=== PATIENT | female | born 1965 | race Caucasian/White ===

== ENCOUNTER 2016-10-16 16:42 | Inpatient (IN) | payer OTHER ==
[2016-10-16] MEDS ORDERED: SODIUM CHLORIDE 0.9% 1,000 ML IV ONE (18:58)
[2016-10-16] MEDS ORDERED: HYDROmorphone 1 MG/ML 1 ML SYRINGE IVP STA ×2 (18:58→21:11)
--- NOTE | 2016-10-16 19:01 | ED ---
Abdominal Pain HPI - General Chief Complaint: Abdominal Pain Stated Complaint: Abd Pain Time Seen by Provider: 10/16/16 18:40 Source: patient, RN notes reviewed Mode of arrival: wheelchair Limitations: no limitations - History of Present Illness Initial Comments: Patient is a 51-year-old female presents to the emergency room for evaluation of abdominal pain. Patient states pain began Wednesday. Patient states pain has been getting worse throughout the week. Patient states she's having left lower quadrant severe sharp stabbing pain. Patient states the pain would not subside. Patient states she has a history of diverticulitis. Patient denies history of abdominal surgeries. Patient denies recent colonoscopies. Patient denies fevers or chills. Patient denies nausea or vomiting. Patient states her last bowel movement was this morning. Patient denies blood in stools or dark tarry stools. Patient denies chest pain or shortness of breath. Denies recent travel outside of the country. Patient denies headache or dizziness. - Related Data Home Medications Medication Instructions Recorded Confirmed No Known Home Medications [No 10/16/16 10/16/16 Known Home Medications] Allergies Allergy/AdvReac Type Severity Reaction Status Date / Time No Known Allergies Allergy Verified 10/16/16 18:48 Review of Systems ROS Statement: Those systems with pertinent positive or pertinent negative responses have been documented in the HPI. ROS Other: All systems not noted in ROS Statement are negative. Past Medical History Additional Past Medical History / Comment(s): diverticulitis, ovarian cyst History of Any Multi-Drug Resistant Organisms: None Reported Past Surgical History: No Surgical Hx Reported Past Psychological History: No Psychological Hx Reported Smoking Status: Current every day smoker Past Alcohol Use History: Rare Past Drug Use History: None Reported General Exam - General Exam Comments Initial Comments: Laying in exam room, anxious secondary to pain Limitations: no limitations General appearance: alert, in no apparent distress Head exam: Present: atraumatic, normocephalic, normal inspection Eye exam: Present: normal appearance ENT exam: Present: normal exam Neck exam: Present: normal inspection Respiratory exam: Present: normal lung sounds bilaterally. Absent: respiratory distress Cardiovascular Exam: Present: regular rate, normal rhythm, normal heart sounds GI/Abdominal exam: Present: soft, tenderness (mild RLQ, tender LLQ), guarding ( voluntary guarding on palpation), normal bowel sounds. Absent: distended, rebound, rigid Extremities exam: Present: normal inspection Back exam: Present: normal inspection Neurological exam: Present: alert, oriented X3, CN II-XII intact, normal gait Psychiatric exam: Present: normal affect, normal mood Skin exam: Present: warm, dry, intact, normal color. Absent: rash Course Vital Signs 10/16/16 10/16/16 17:10 21:01 Temperature 98.9 F 98.5 F Pulse Rate 77 81 Respiratory 18 16 Rate Blood Pressure 129/70 123/73 O2 Sat by Pulse 99 97 Oximetry Medical Decision Making - Medical Decision Making Patient is a 51-year-old female presents emergency room for evaluation of abdominal pain. Patient is noted to have an elevated white count. Abdomen/ pelvis CT: Acute proximal sigmoid diverticulitis with localized microperforation tiny focus of adjacent extraluminal air in the left lower quadrant. Large dominant heterogenicity posterior fibroid. This could be followed sonographically is not previously known. Splenomegaly (per radiology) . Case discussed with Dr. Little. Case discussed with Dr. Hodges who also evaluated patient. Patient will be admitted and treated with IV antibiotics. - Lab Data Result diagrams: 10/16/16 19:49 10/16/16 19:49 Lab Results 10/16/16 10/16/16 10/16/16 Range/Units 19:49 19:49 19:49 WBC 12.8 H (3.8-10.6) k/uL RBC 5.17 (3.80-5.40) m/uL Hgb 15.9 (11.4-16.0) gm/dL Hct 46.7 H (34.0-46.0) % MCV 90.3 (80.0-100.0) fL MCH 30.8 (25.0-35.0) pg MCHC 34.1 (31.0-37.0) g/dL RDW 13.1 (11.5-15.5) % Plt Count 288 (150-450) k/uL Neutrophils % 85 % Lymphocytes % 10 % Monocytes % 3 % Eosinophils % 1 % Basophils % 0 % Neutrophils # 10.8 H (1.3-7.7) k/uL Lymphocytes # 1.3 (1.0-4.8) k/uL Monocytes # 0.4 (0-1.0) k/uL Eosinophils # 0.1 (0-0.7) k/uL Basophils # 0.1 (0-0.2) k/uL Sodium 142 (137-145) mmol/L Potassium 4.4 (3.5-5.1) mmol/L Chloride 107 (98-107) mmol/L Carbon Dioxide 22 (22-30) mmol/L Anion Gap 13 mmol/L BUN 12 (7-17) mg/dL Creatinine 0.70 (0.52-1.04) mg/dL Est GFR (MDRD) Af Amer >60 (>60 ml/min/1.73 sqM) Est GFR (MDRD) Non-Af >60 (>60 ml/min/1.73 sqM) Glucose 93 (74-99) mg/dL Calcium 9.9 (8.4-10.2) mg/dL Total Bilirubin 0.5 (0.2-1.3) mg/dL AST 13 L (14-36) U/L ALT 24 (9-52) U/L Alkaline Phosphatase 92 (38-126) U/L Total Protein 7.9 (6.3-8.2) g/dL Albumin 4.5 (3.5-5.0) g/dL Amylase 53 (30-110) U/L Lipase 52 (23-300) U/L Urine Color Yellow Urine Appearance Cloudy H (Clear) Urine pH 5.5 (5.0-8.0) Ur Specific [place] 1.018 (1.001-1.035) Urine Protein Trace H (Negative) Urine Glucose (UA) Negative (Negative) Urine Ketones Negative (Negative) Urine Blood Small H (Negative) Urine Nitrite Positive H (Negative) Urine Bilirubin Negative (Negative) Urine Urobilinogen <2.0 (<2.0) mg/dL Ur Leukocyte Esterase Moderate H (Negative) Urine RBC 5 (0-5) /hpf Urine WBC 29 H (0-5) /hpf Ur Squamous Epith Cells 4 (0-4) /hpf Urine Bacteria Many H (None) /hpf Urine Mucus Many H (None) /hpf - Radiology Data Radiology results: report reviewed, image reviewed Disposition Clinical Impression: Diverticulitis Disposition: ADMITTED IP TO THIS [facility] Condition: Stable Referrals: None,Stated [Primary Care Provider] - 1-2 days Decision Date: 10/16/16
[2016-10-16 20:12] LABS: Basophils # (A) 0.1 k/uL (0-0.2); Basophils % (A) 0 %; CH 30.9; CHCM 34.4; Eosinophils # (A) 0.1 k/uL (0-0.7); Eosinophils % (A) 1 %; HCT 46.7 % (34.0-46.0); HDW 2.77; HGB 15.9 gm/dL (11.4-16.0); Luc # (Auto) 0.09; Luc % (Auto) 1; Lymphocytes # (A) 1.3 k/uL (1.0-4.8); Lymphocytes % (A) 10 %; MCH 30.8 pg (25.0-35.0); MCHC 34.1 g/dL (31.0-37.0); MCV 90.3 fL (80.0-100.0); Mean Platelet Volume 7.3; Monocytes # (A) 0.4 k/uL (0-1.0); Monocytes % (A) 3 %; Neutrophils # (A) 10.8 k/uL (1.3-7.7); Neutrophils % (A) 85 %; RBC 5.17 m/uL (3.80-5.40); RDW 13.1 % (11.5-15.5); WBC 12.8 k/uL (3.8-10.6); WBC (Perox) 12.33
--- NOTE | 2016-10-16 20:25 | XR ---
EXAMINATION TYPE: XR KUB DATE OF EXAM: 10/16/2016 8:16 PM COMPARISON: NONE INDICATION: Pain TECHNIQUE: Single view abdomen upright FINDINGS: There is a normal bowel gas pattern. Some nonspecific small bowel gas is present. Psoas margins are normal. No organomegaly is present. IMPRESSION: 1. Unremarkable Abdomen
[2016-10-16 20:28] LABS: Appearance,Urine Cloudy (Clear); Bacteria,Urine Many /hpf; Bilirubin,Urine Negative (Negative); Glucose,Urine (UA) Negative (Negative); Ketones,Urine Negative (Negative); Leukocyte Esterase,Urine Moderate (Negative); Mucus,Urine Many /hpf; Nitrite,Urine Positive (Negative); PH, Urine 5.5 (5.0-8.0); Particle Count 37736; Protein,Urine Trace (Negative); RBC,Urine 5 /hpf (0-5); Specific Gravity,Urine 1.018 (1.001-1.035); Squamous Epithelial Cell,Urine 4 /hpf (0-4); UA Billing (MACRO vs. MICRO) MICRO; Urobilinogen,Urine <2.0 mg/dL (<2.0); WBC,Urine 29 /hpf (0-5)
[2016-10-16 20:42] LABS: ALT 24 U/L (9-52); AST 13 U/L (14-36); Alkaline Phosphatase 92 U/L (38-126); Amylase 53 U/L (30-110); Anion Gap 13 mmol/L; Blood Urea Nitrogen 12 mg/dL (7-17); Calcium 9.9 mg/dL (8.4-10.2); Carbon Dioxide 22 mmol/L (22-30); Chloride 107 mmol/L (98-107); Glucose 93 mg/dL (74-99); Non-African American GFR(MDRD) >60 (>60 ml/min/1.73 sqM); Potassium 4.4 mmol/L (3.5-5.1); Sodium 142 mmol/L (137-145); Total Bilirubin 0.5 mg/dL (0.2-1.3); Total Protein 7.9 g/dL (6.3-8.2)
[2016-10-16] MEDS ORDERED: RX INFO: IV CONTRAST WAS GIVEN 1 EACH MISC MISCELLANE PRN (21:10)
[2016-10-16] MEDS ORDERED: KETOROLAC 30 MG/ML 1 ML VIAL IVP STA (21:11)
--- NOTE | 2016-10-16 22:03 | CT ---
EXAM: CT Abdomen and Pelvis With Intravenous Contrast CLINICAL HISTORY: Reason: Pain TECHNIQUE: Axial computed tomography images of the abdomen and pelvis with intravenous contrast. CTDI is 46.80 mGy and DLP is 2064.50 mGy-cm. This CT exam was performed using one or more of the following dose reduction techniques: automated exposure control, adjustment of the mA and/or kV according to patient size, and/or use of iterative reconstruction technique. COMPARISON: No relevant prior studies available. FINDINGS: Lower thorax: Mild dependent changes at the lung bases. Small hiatal hernia. ABDOMEN: Liver: Uniform in appearance without focal lesion. Borderline enlarged at 17.5 cm in length. Gallbladder and bile ducts: Unremarkable. No calcified stones. No ductal dilation. Pancreas: Mild fatty replacement of the pancreas. No ductal dilation. Spleen: Splenomegaly with splenic length of 14.7 cm. Adrenals: Unremarkable. No mass. Kidneys and ureters: Several small left renal low-density lesions, too small to accurately characterize, statistically cysts. No hydronephrosis. Stomach and bowel: Colonic diverticulosis, most heavily concentrated within the distal descending and sigmoid colon, with findings of acute proximal sigmoid diverticulitis. There is surrounding stranding in the left lower quadrant , within which there is at least one punctate focus of extraluminal air on axial image 70 consistent with localized microperforation. No evidence of abscess or intestinal obstruction. Appendix: No findings to suggest acute appendicitis. PELVIS: Bladder: Unremarkable. No mass. Reproductive: Enlarged uterus, containing a mixed density round posterior 5.9 x 5.9 cm mass most suggestive of a large dominant fibroid. ABDOMEN and PELVIS: Intraperitoneal space: See above. Bones/joints: Multilevel degenerative changes. No acute fracture. Vasculature: No abdominal aortic aneurysm. Lymph nodes: No adenopathy. IMPRESSION: 1. Acute proximal sigmoid diverticulitis, with localized microperforation and tiny focus of adjacent extraluminal air in the left lower quadrant. 2. Large dominant heterogeneous posterior fibroid. This could be followed sonographically if not previously known. 3. Splenomegaly. 4. Additional findings as above. [employer] 10/16/16 22:08 Call Doctor Regarding Bowel Perforation with Free Air, called Dr. Arnold on 10/16 22:07 (-04:00)
[2016-10-16] MEDS ORDERED: NALOXONE 0.4 MG/ML 1 ML VIAL IV PRN (22:28)
[2016-10-16] MEDS ORDERED: ACETAMINOPHEN TAB 325 MG TAB PO PRN (22:28)
[2016-10-16] MEDS ORDERED: ONDANSETRON 4 MG/2 ML VIAL IVP PRN (22:28)
[2016-10-16] MEDS ORDERED: PIPERACILLIN-TAZOBACTAM 3.375 GM in DEXTROSE/WATER 1 50ML.BAG IVPB STA (22:30)
[2016-10-16] MEDS ORDERED: metroNIDAZOLE-NS PMX 500 MG in SALINE 1 100ML.BAG IVPB STA (22:30)
--- NOTE | 2016-10-16 22:32 | P.GSHP ---
History of Present Illness H&P Date: 10/16/16 Chief Complaint: Abdominal pain Patient is a 51-year-old white female who presents to the emergency room with a several-day history of abdominal discomfort. The pain became progressively worse today, she came to the emergency room. She had a computed tomography scan performed which revealed extensive diverticular disease with a small area of microperforation. There is no gross free air. The patient has had some chills denies any fever. She did have a bowel movement today. Past surgical history: Negative Past medical history: Cysts on Social history: Smokes less than 1 pack per day Alcohol: Occasionally Marijuana: Negative Pregnancies: 11 child Review of systems: HEENT: Negative Lungs: Bronchitis Heart: Negative GI: As above she has never had a colonoscopy : Negative - Constitutional Constitutional: Reports as per HPI, Reports chills - Respiratory Respiratory: Reports as per HPI - Gastrointestinal Comment: Diverticulitis Gastrointestinal: Reports as per HPI - Genitourinary (Female) Genitourinary: Reports as per HPI Past Medical History Additional Past Medical History / Comment(s): diverticulitis, ovarian cyst History of Any Multi-Drug Resistant Organisms: None Reported Past Surgical History: No Surgical Hx Reported Past Psychological History: No Psychological Hx Reported Smoking Status: Current every day smoker Past Alcohol Use History: Rare Past Drug Use History: None Reported Medications and Allergies Home Medications Medication Instructions Recorded Confirmed Type No Known Home Medications [No 10/16/16 10/16/16 History Known Home Medications] Allergies Allergy/AdvReac Type Severity Reaction Status Date / Time No Known Allergies Allergy Verified 10/16/16 18:48 Surgical - Exam Vital Signs Temp Pulse Resp BP Pulse Ox 98.9 F 77 18 129/70 99 10/16/16 17:10 10/16/16 17:10 10/16/16 17:10 10/16/16 17:10 10/16/16 17:10 - General moderate distress, obese - Eyes normal ocular movement - ENT normal pinna, normal nares, normal mucosa, no hearing loss - Neck no masses, trachea midline, no lymphadectomy, no venous distension - Respiratory normal expansion, normal respiratory effort, clear to auscultation - Cardiovascular Rhythm: regular Heart Sounds: normal: S1, S2 - Abdomen Abdomen is soft with tenderness to palpation in right and left lower quadrants greatest in the left lower quadrant with some mild voluntary guarding Abdomen: soft, tender, bowel sounds - Rectum Positive stool in rectal vault Rectum: no hemorrhoids, no tenderness, no masses, no bleeding - Psychiatric oriented to time, oriented to person, oriented to place, speech is normal Results - Labs 10/16/16 19:49 10/16/16 19:49 Abnormal Lab Results - Last 24 Hours (Table) 10/16/16 10/16/16 10/16/16 Range/Units 19:49 19:49 19:49 WBC 12.8 H (3.8-10.6) k/uL Hct 46.7 H (34.0-46.0) % Neutrophils # 10.8 H (1.3-7.7) k/uL AST 13 L (14-36) U/L Urine Appearance Cloudy H (Clear) Urine Protein Trace H (Negative) Urine Blood Small H (Negative) Urine Nitrite Positive H (Negative) Ur Leukocyte Esterase Moderate H (Negative) Urine WBC 29 H (0-5) /hpf Urine Bacteria Many H (None) /hpf Urine Mucus Many H (None) /hpf Diabetes panel 10/16/16 Range/Units 19:49 Sodium 142 (137-145) mmol/L Potassium 4.4 (3.5-5.1) mmol/L Chloride 107 (98-107) mmol/L Carbon Dioxide 22 (22-30) mmol/L BUN 12 (7-17) mg/dL Creatinine 0.70 (0.52-1.04) mg/dL Glucose 93 (74-99) mg/dL Calcium 9.9 (8.4-10.2) mg/dL AST 13 L (14-36) U/L ALT 24 (9-52) U/L Alkaline Phosphatase 92 (38-126) U/L Total Protein 7.9 (6.3-8.2) g/dL Albumin 4.5 (3.5-5.0) g/dL Calcium panel 10/16/16 Range/Units 19:49 Calcium 9.9 (8.4-10.2) mg/dL Albumin 4.5 (3.5-5.0) g/dL Pituitary panel 10/16/16 Range/Units 19:49 Sodium 142 (137-145) mmol/L Potassium 4.4 (3.5-5.1) mmol/L Chloride 107 (98-107) mmol/L Carbon Dioxide 22 (22-30) mmol/L BUN 12 (7-17) mg/dL Creatinine 0.70 (0.52-1.04) mg/dL Glucose 93 (74-99) mg/dL Calcium 9.9 (8.4-10.2) mg/dL Adrenal panel 10/16/16 Range/Units 19:49 Sodium 142 (137-145) mmol/L Potassium 4.4 (3.5-5.1) mmol/L Chloride 107 (98-107) mmol/L Carbon Dioxide 22 (22-30) mmol/L BUN 12 (7-17) mg/dL Creatinine 0.70 (0.52-1.04) mg/dL Glucose 93 (74-99) mg/dL Calcium 9.9 (8.4-10.2) mg/dL Total Bilirubin 0.5 (0.2-1.3) mg/dL AST 13 L (14-36) U/L ALT 24 (9-52) U/L Alkaline Phosphatase 92 (38-126) U/L Total Protein 7.9 (6.3-8.2) g/dL Albumin 4.5 (3.5-5.0) g/dL - Imaging CT scan - abdomen: report reviewed, image reviewed CT scan - pelvis: report reviewed, image reviewed Assessment and Plan Plan: Impression/plan: 1. 51-year-old white female with microperforation of acute diverticulitis 2. Obesity 3. Uterine fibroid 4. Splenomegaly Plan: 1. I've had a long discussion with the patient regarding her diverticular disease and microperforation. She understands that the treatment options are bowel rest with IV antibiotics versus surgical resection with Hassan's procedure. At this time she wishes to avoid surgery and we will treat conservatively with antibiotics repeating CBC in a.m. 2. Medicine consult 3. ID consult
[2016-10-17] MEDS: HYDROmorphone 1 MG/ML 1 ML SYRINGE IV PRN ×5 (00:34→23:18)
[2016-10-17] MEDS ORDERED: MAG HYDROX/AL HYDROX/SIMETH 30 ML CUP PO PRN (01:29)
[2016-10-17] MEDS: SODIUM CHLORIDE 0.9% 1,000 ML IV SCH ×3 (04:55→21:30)
[2016-10-17] MEDS: PANTOPRAZOLE 40 MG/10 ML VIAL IVP SCH (08:24)
[2016-10-17] MEDS: HEPARIN SODIUM,PORCINE 5,000 UNIT/ML 1 ML VIAL SQ SCH ×2 (08:24→21:30)
[2016-10-17] MEDS: KETOROLAC 30 MG/ML 1 ML VIAL IVP PRN ×3 (08:58→21:27)
[2016-10-17 10:50] LABS: Basophils # (A) 0.1 k/uL (0-0.2); Basophils % (A) 1 %; CH 30.3; Eosinophils # (A) 0.1 k/uL (0-0.7); Eosinophils % (A) 1 %; HCT 39.9 % (34.0-46.0); HDW 2.67; HGB 13.3 gm/dL (11.4-16.0); Luc # (Auto) 0.12; Luc % (Auto) 2; Lymphocytes # (A) 1.2 k/uL (1.0-4.8); Lymphocytes % (A) 16 %; MCH 30.6 pg (25.0-35.0); MCHC 33.2 g/dL (31.0-37.0); MCV 92.2 fL (80.0-100.0); Mean Platelet Volume 7.4; Monocytes # (A) 0.4 k/uL (0-1.0); Monocytes % (A) 6 %; Neutrophils # (A) 5.7 k/uL (1.3-7.7); Neutrophils % (A) 75 %; RBC 4.33 m/uL (3.80-5.40); RDW 13.1 % (11.5-15.5); WBC 7.6 k/uL (3.8-10.6); WBC (Perox) 7.65
--- NOTE | 2016-10-17 11:03 | P.PN ---
Subjective Principal diagnosis: Patient admitted with abdominal pain and computed tomography scan findings of microperforation of diverticulitis. Patient states she feels somewhat better today. She has been having bowel activity. Objective - Vital Signs Vital signs: Vital Signs Temp 98.5 F 10/17/16 07:00 Pulse 79 10/17/16 07:00 Resp 20 10/17/16 07:00 BP 121/69 10/17/16 07:00 Pulse Ox 92 L 10/17/16 07:00 Intake & Output 10/16/16 10/17/16 10/17/16 18:59 06:59 18:59 Intake Total 0 Balance 0 Weight 113.398 kg 112.037 kg Intake: Oral 0 Other: # Voids 1 - Constitutional General appearance: Present: no acute distress, obese - Respiratory Details: Decreased breath sounds at the bases - Cardiovascular Rhythm: regular Heart sounds: normal: S1, S2 - Gastrointestinal Gastrointestinal Comment(s): Decreased tenderness left lower quadrant, otherwise soft Decreased bowel sounds - Psychiatric Psychiatric: Present: A&O x's 3, appropriate affect, intact judgment & insight - Labs CBC & Chem 7: 10/17/16 10:14 10/16/16 19:49 Labs: Abnormal Lab Results - Last 24 Hours (Table) 10/16/16 10/16/16 10/16/16 Range/Units 19:49 19:49 19:49 WBC 12.8 H (3.8-10.6) k/uL Hct 46.7 H (34.0-46.0) % Neutrophils # 10.8 H (1.3-7.7) k/uL AST 13 L (14-36) U/L Urine Appearance Cloudy H (Clear) Urine Protein Trace H (Negative) Urine Blood Small H (Negative) Urine Nitrite Positive H (Negative) Ur Leukocyte Esterase Moderate H (Negative) Urine WBC 29 H (0-5) /hpf Urine Bacteria Many H (None) /hpf Urine Mucus Many H (None) /hpf Assessment and Plan Plan: Impression/plan: 1. 51-year-old white female with microperforation of acute diverticulitis 2. Obesity 3. Uterine fibroid 4. Splenomegaly Plan: 1. I've had a long discussion with the patient regarding her diverticular disease and microperforation. She understands that the treatment options are bowel rest with IV antibiotics versus surgical resection with Hassan's procedure. At this time she wishes to avoid surgery and we will treat conservatively with antibiotics 2. Medicine consult 3. ID consult 4. Await repeat CBC
[2016-10-17 11:25] LABS: ALT 20 U/L (9-52); AST 8 U/L (14-36); Alkaline Phosphatase 66 U/L (38-126); Anion Gap 9 mmol/L; Blood Urea Nitrogen 13 mg/dL (7-17); Calcium 8.8 mg/dL (8.4-10.2); Carbon Dioxide 21 mmol/L (22-30); Chloride 110 mmol/L (98-107); Glucose 106 mg/dL (74-99); Non-African American GFR(MDRD) >60 (>60 ml/min/1.73 sqM); Potassium 4.1 mmol/L (3.5-5.1); Sodium 140 mmol/L (137-145); Total Bilirubin 0.9 mg/dL (0.2-1.3); Total Protein 6.6 g/dL (6.3-8.2)
[2016-10-17] MEDS: metroNIDAZOLE-NS PMX 500 MG in SALINE 1 100ML.BAG IVPB SCH ×2 (13:54→21:27)
[2016-10-17] MEDS: PIPERACILLIN-TAZOBACTAM 3.375 GM in DEXTROSE/WATER 1 50ML.BAG IVPB SCH ×2 (15:28→23:18)
--- NOTE | 2016-10-17 16:03 | P.CONS ---
History of Present Illness - Reason for Consult Consult date: 10/17/16 - Chief Complaint Abdominal pain - History of Present Illness 51-year-old female presents to Hospital with the onset and rapid worsening of abdominal pain. His left lower quadrant location. Associated with significant discomfort and a sharp stabbing manner. No physical maneuvers allowed improvement of the pain. After she presented to the emergency center. Because of the abdominal pain and evidence of leukocytosis a CT scan was performed. This verified evidence of sigmoid diverticulitis and a microperforation. Antibiotic therapy has been requested. The patient continues to have significant discomfort in the left lower quadrant. She had some nausea that resolved. She's had no further emesis. She is only on ice chips at this time. She's denying high-grade fever chills rigors or sweats. She's not had difficulties with diverticulitis in the past. She is 51 is not yet a screening colonoscopy as of yet. Review of Systems HEENT:Denies headache or acute visual change. Denies sinus or mouth discomforts. Denies neck stiffness or pain. Denies significant oral cavity pain. Denies difficulty on swallowing. Lungs: Denies significant shortness of breath, cough, sputum production, or hemoptysis. Cardiovascular: Denies significant shortness of breath, chest pain, chest wall pain, orthopnea, dyspnea on exertion, syncope Gastrointestinal: As per the HPI Musculoskeletal: denies significant myalgias or arthralgias. No new joint swelling. Denies new back pain. Skin: Denies new rash or lesions. No new ulcers or wounds are related.. Neuro: Denies headache or visual change. Denies any new onset weakness or difficulty with ambulation. Denies falls or seizures. Psychiatric:Denies anxiety or depression. Endocrine: Denies significant fatigue, denies significant weight loss or weight gain. 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 Lives with her adult son. No international travel. No experience. Tobacco and alcohol use. No recreational drug use. 2 Dogs and pet cat at home, sinus caring for them all she's Hospital Smoking Status: Current every day smoker Past Alcohol Use History: Rare Past Drug Use History: None Reported - Past Family History Father Additional Family Medical History / Comment(s): Has chronic urinary catheter Mother Family Medical History: Cancer, Diabetes Mellitus Additional Family Medical History / Comment(s): Mother after heart valve surgery; had ovarian cancer Medications and Allergies Home Medications and Allergies Comment(s): Current Medications Acetaminophen (Tylenol Tab) 650 mg PO Q6HR PRN PRN Reason: Mild Pain or Fever > 100.5 Al Hydroxide/Mg Hydroxide (Maalox) 30 ml PO Q4HR PRN PRN Reason: GI Upset Last Admin: 10/17/16 02:15 Dose: 30 ml Heparin Sodium (Porcine) (Heparin) 5,000 unit SQ BID ISAIAH Last Admin: 10/17/16 08:24 Dose: 5,000 unit Hydromorphone HCl (Dilaudid) 0.5 mg IV Q3HR PRN PRN Reason: Severe Pain Last Admin: 10/17/16 12:00 Dose: 0.5 mg Sodium Chloride (Saline 0.9%) 1,000 mls @ 100 mls/hr IV .Q10H [facility] Last Admin: 10/17/16 10:08 Dose: Not Given Piperacillin/Tazobactam/ (Dextrose 3.375 gm/ IV Solution) 50 mls @ 12.5 mls/hr IVPB Q8HR [facility] Last Admin: 10/17/16 15:28 Dose: 12.5 mls/hr Metronidazole 500 mg/ IV (Solution) 100 mls @ 100 mls/hr IVPB Q8H [facility] Last Admin: 10/17/16 13:54 Dose: 100 mls/hr Ketorolac Tromethamine (Toradol) 30 mg IVP Q6HR PRN PRN Reason: Moderate Pain Stop: 10/21/16 22:29 Last Admin: 10/17/16 14:26 Dose: 30 mg Miscellaneous Information (Rx Info: Iv Contrast Was Given) 1 each MISCELLANE DAILY PRN PRN Reason: Per Protocol Stop: 10/18/16 21:10 Naloxone HCl (Narcan) 0.2 mg IV Q2M PRN PRN Reason: Opioid Reversal Ondansetron HCl (Zofran) 4 mg IVP Q8HR PRN PRN Reason: Nausea And Vomiting Pantoprazole Sodium (Protonix) 40 mg IVP DAILY ISAIAH Last Admin: 10/17/16 08:24 Dose: 40 mg Home Medications Medication Instructions Recorded Confirmed Type No Known Home Medications [No 10/16/16 10/16/16 History Known Home Medications] Allergies Allergy/AdvReac Type Severity Reaction Status Date / Time No Known Allergies Allergy Verified 10/16/16 18:48 Physical Exam Vitals: Vital Signs Temp Pulse Pulse Resp BP BP Pulse Ox 10/17/16 07:00 98.5 F 79 20 121/69 92 L 10/16/16 23:40 98.4 F 82 20 140/70 94 L 10/16/16 23:24 98.4 F 82 16 109/55 92 L 10/16/16 21:01 98.5 F 81 16 123/73 97 10/16/16 17:10 98.9 F 77 18 129/70 99 Intake and Output 10/17/16 10/17/16 10/17/16 06:59 14:59 22:59 Intake Total 0 Balance 0 Intake: Oral 0 Other: Voiding Method Toilet # Voids 1 1 Weight 112.037 kg 51-year-old woman who is modestly comfortable at this time. HEENT: Anicteric conjunctiva are pink and moist nasal mucosa grossly intact without significant lesions, there is no thrush. Neck: The neck is supple without significant lymphadenopathy or thyromegaly. Lungs: Symmetrical air entry is noted. Brachial wheezes are heard. No bronchial sounds. No dullness or egophony. Heart: Regular rate and rhythm with an audible S1-S2, no S3 no S4. There is no significant murmur click or rub, PMI was nondisplaced. Abdomen: Positive bowel sounds , the abdomen is soft but has distinct tenderness in left lower quadrant. The rest of the abdomen is benign. There is no guarding or rebound. There is no palpable masses. There was no organomegaly. Extremities: The upper extremities have excellent pulses they are symmetric, no significant petechiae or telangiectasia. No splinter hemorrhages were noted. The lower extremities are free from significant edema. The peripheral pulses were 2+ and symmetric. Neuro: Awake alert oriented to person place and time. There are no acute new gross focal sensory motor deficits. Results CBC & Chem 7: 10/17/16 10:14 10/17/16 10:14 Labs: Abnormal Lab Results - Last 24 Hours (Table) 10/16/16 10/16/16 10/16/16 Range/Units 19:49 19:49 19:49 WBC 12.8 H (3.8-10.6) k/uL Hct 46.7 H (34.0-46.0) % Neutrophils # 10.8 H (1.3-7.7) k/uL Chloride (98-107) mmol/L Carbon Dioxide (22-30) mmol/L Glucose (74-99) mg/dL AST 13 L (14-36) U/L Urine Appearance Cloudy H (Clear) Urine Protein Trace H (Negative) Urine Blood Small H (Negative) Urine Nitrite Positive H (Negative) Ur Leukocyte Esterase Moderate H (Negative) Urine WBC 29 H (0-5) /hpf Urine Bacteria Many H (None) /hpf Urine Mucus Many H (None) /hpf 10/17/16 Range/Units 10:14 WBC (3.8-10.6) k/uL Hct (34.0-46.0) % Neutrophils # (1.3-7.7) k/uL Chloride 110 H (98-107) mmol/L Carbon Dioxide 21 L (22-30) mmol/L Glucose 106 H (74-99) mg/dL AST 8 L (14-36) U/L Urine Appearance (Clear) Urine Protein (Negative) Urine Blood (Negative) Urine Nitrite (Negative) Ur Leukocyte Esterase (Negative) Urine WBC (0-5) /hpf Urine Bacteria (None) /hpf Urine Mucus (None) /hpf Laboratory Results WBC 7.6 k/uL (3.8-10.6) 10/17/16 10:14 RBC 4.33 m/uL (3.80-5.40) 10/17/16 10:14 Hgb 13.3 gm/dL (11.4-16.0) 10/17/16 10:14 Hct 39.9 % (34.0-46.0) 10/17/16 10:14 MCV 92.2 fL (80.0-100.0) 10/17/16 10:14 MCH 30.6 pg (25.0-35.0) 10/17/16 10:14 MCHC 33.2 g/dL (31.0-37.0) 10/17/16 10:14 RDW 13.1 % (11.5-15.5) 10/17/16 10:14 Plt Count 226 k/uL (150-450) 10/17/16 10:14 Neutrophils % 75 % 10/17/16 10:14 Lymphocytes % 16 % 10/17/16 10:14 Monocytes % 6 % 10/17/16 10:14 Eosinophils % 1 % 10/17/16 10:14 Basophils % 1 % 10/17/16 10:14 Neutrophils # 5.7 k/uL (1.3-7.7) 10/17/16 10:14 Lymphocytes # 1.2 k/uL (1.0-4.8) 10/17/16 10:14 Monocytes # 0.4 k/uL (0-1.0) 10/17/16 10:14 Eosinophils # 0.1 k/uL (0-0.7) 10/17/16 10:14 Basophils # 0.1 k/uL (0-0.2) 10/17/16 10:14 Sodium 140 mmol/L (137-145) 10/17/16 10:14 Potassium 4.1 mmol/L (3.5-5.1) 10/17/16 10:14 Chloride 110 mmol/L (98-107) H 10/17/16 10:14 Carbon Dioxide 21 mmol/L (22-30) L 10/17/16 10:14 Anion Gap 9 mmol/L 10/17/16 10:14 BUN 13 mg/dL (7-17) 10/17/16 10:14 Creatinine 0.73 mg/dL (0.52-1.04) 10/17/16 10:14 Est GFR (MDRD) Af Amer >60 (>60 ml/min/1.73 sqM) 10/17/16 10:14 Est GFR (MDRD) Non-Af >60 (>60 ml/min/1.73 sqM) 10/17/16 10:14 Glucose 106 mg/dL (74-99) H 10/17/16 10:14 Calcium 8.8 mg/dL (8.4-10.2) 10/17/16 10:14 Total Bilirubin 0.9 mg/dL (0.2-1.3) 10/17/16 10:14 AST 8 U/L (14-36) L 10/17/16 10:14 ALT 20 U/L (9-52) 10/17/16 10:14 Alkaline Phosphatase 66 U/L (38-126) 10/17/16 10:14 Total Protein 6.6 g/dL (6.3-8.2) 10/17/16 10:14 Albumin 3.6 g/dL (3.5-5.0) 10/17/16 10:14 Amylase 53 U/L (30-110) 10/16/16 19:49 Lipase 52 U/L (23-300) 10/16/16 19:49 Urine Color Yellow 10/16/16 19:49 Urine Appearance Cloudy (Clear) H 10/16/16 19:49 Urine pH 5.5 (5.0-8.0) 10/16/16 19:49 Ur Specific [place] 1.018 (1.001-1.035) 10/16/16 19:49 Urine Protein Trace (Negative) H 10/16/16 19:49 Urine Glucose (UA) Negative (Negative) 10/16/16 19:49 Urine Ketones Negative (Negative) 10/16/16 19:49 Urine Blood Small (Negative) H 10/16/16 19:49 Urine Nitrite Positive (Negative) H 10/16/16 19:49 Urine Bilirubin Negative (Negative) 10/16/16 19:49 Urine Urobilinogen <2.0 mg/dL (<2.0) 10/16/16 19:49 Ur Leukocyte Esterase Moderate (Negative) H 10/16/16 19:49 Urine RBC 5 /hpf (0-5) 10/16/16 19:49 Urine WBC 29 /hpf (0-5) H 10/16/16 19:49 Ur Squamous Epith Cells 4 /hpf (0-4) 10/16/16 19:49 Urine Bacteria Many /hpf (None) H 10/16/16 19:49 Urine Mucus Many /hpf (None) H 10/16/16 19:49 Assessment and Plan (1) Diverticulitis Status: Acute (2) Leukocytosis Narrative/Plan: 51-year-old female who has a history of tobacco use presents to Hospital significant abdominal pain. Left lower quadrant in location. The most severe pain that she's had in her life. There is evidence of leukocytosis at admission. In counseling computed tomography scan was performed and verified evidence of a significant diverticulitis with a localized microperforation of the sigmoid colon. Patient's exam also corresponds well to the CT findings. The very localized problem. Patient's been evaluated by surgery. Current goal will be for a course of antibiotic therapy. And then one well have an outpatient colonoscopy to evaluate for any next needed steps. Pain control is adequate. Leukocytosis is improving. She has no severe drug ALLERGIES. As she improves completion course of Augmentin at discharge should be adequate. Status: Acute (3) Perforation of sigmoid colon Status: Acute (4) Perforation of sigmoid colon due to diverticulitis Status: Acute
--- NOTE | 2016-10-17 18:25 | CONS ---
DATE OF CONSULTATION: REASON FOR CONSULT: Diverticulitis management. HISTORY OF PRESENT ILLNESS: Ms. Edwards is a 51-year-old female with a past medical history of smoking, admitted to the hospital with the chief complaint of pain in the left abdominal quadrant which has been going on for the past 4 to 5 days. Patient does have a history of diverticulitis. She denies having any abdominal surgeries. No history of recent colonoscopy. Patient denies having any fever, chills or rigors. She denies having any diarrhea or dark-colored stools or blood in her urine. Patient denies having any chest pain or difficulty in breathing. No recent travel. She denies having any headaches or weakness of her extremities. REVIEW OF SYSTEMS: All 13 review of systems are done and negative except for ones mentioned in the HPI. PAST MEDICAL HISTORY: None. ALLERGIES: NO KNOWN DRUG ALLERGIES. FAMILY HISTORY: Positive for diabetes in her mother. SOCIAL HISTORY: Patient has been smoking 1 pack a day for the past 30 years. No alcohol use. No history of intravenous drug abuse. On examination, patient's vital signs are temperature 98.5, heart rate 79, respiratory rate 20, blood pressure 121/69. Saturating at 92% on room air. GENERAL EXAMINATION: Patient appears to be no acute distress. HEAD: Atraumatic, normocephalic. EYES: Pupils round and reactive to light. NECK: No JVD. No thyromegaly. CARDIOVASCULAR: S1, S2 heard. No additional sounds. RESPIRATORY: Bilateral breath sounds are positive. No wheeze or crackles. ABDOMEN: Soft. Positive for tenderness in the left lower abdominal quadrant. Slightly diminished bowel sounds. EXTREMITIES: No edema. No cyanosis. No clubbing. There is a tender mass which is palpable in the right lower thigh region. She states that it has been there for the past 9 years; no acute changes. ELECTRONICS ENGINEERING TECHNICIAN: Alert, awake, oriented x3. No focal neurological deficits. SKIN: No rashes. PSYCHIATRIC: Appropriate mood and affect. PATIENT'S LABS: White count of 7.6, hemoglobin 13.3, platelets 226. Sodium 140, potassium 4.1, chloride 110, bicarb 21. BUN 13, creatinine 0.73. Patient had a CT scan of the abdomen and pelvis showing acute proximal sigmoid diverticulitis with localized micro perforation and tiny focus of adjacent extraluminal air in the left lower quadrant; and there is also a large dominant heterogeneous posterior fibroid with mild splenomegaly. ASSESSMENT AND PLAN: 1. Acute diverticulitis. Patient is currently on Flagyl and Zosyn as per surgical team recommendations. 2. History of nicotine dependence. 3. Mass on the right lower thigh. 4. Contaminated urine specimen PLAN: Plan is to continue antibiotics as per primary care team management. Patient is advised to stop smoking and to follow up with her primary care physician for the mass in the right lower extremity. I will follow the patient on a p.r.n. basis. Thank you for the consult. MARGOT
[2016-10-18] MEDS: HYDROmorphone 1 MG/ML 1 ML SYRINGE IV PRN ×3 (02:32→18:57)
[2016-10-18] MEDS: SODIUM CHLORIDE 0.9% 1,000 ML IV SCH ×3 (05:11→23:42)
[2016-10-18] MEDS: metroNIDAZOLE-NS PMX 500 MG in SALINE 1 100ML.BAG IVPB SCH ×3 (06:07→21:34)
[2016-10-18] MEDS: KETOROLAC 30 MG/ML 1 ML VIAL IVP PRN ×3 (06:12→22:05)
[2016-10-18] MEDS: HEPARIN SODIUM,PORCINE 5,000 UNIT/ML 1 ML VIAL SQ SCH ×2 (07:37→20:14)
[2016-10-18] MEDS: PIPERACILLIN-TAZOBACTAM 3.375 GM in DEXTROSE/WATER 1 50ML.BAG IVPB SCH ×3 (07:37→23:39)
[2016-10-18] MEDS: PANTOPRAZOLE 40 MG/10 ML VIAL IVP SCH (07:41)
--- NOTE | 2016-10-18 08:44 | P.PN ---
Subjective Principal diagnosis: Patient admitted with abdominal pain and computed tomography scan findings of microperforation of diverticulitis. Patient states she feels somewhat better today with improvement in her abdominal discomfort. She has been having bowel activity. Objective - Vital Signs Vital signs: Vital Signs Temp 97.7 F 10/18/16 07:00 Pulse 73 10/18/16 07:00 Resp 20 10/18/16 07:00 BP 118/71 10/18/16 07:00 Pulse Ox 93 L 10/18/16 07:00 Intake & Output 10/17/16 10/18/16 10/18/16 18:59 06:59 18:59 Intake Total 0 Balance 0 Intake: Oral 0 Other: Voiding Method Toilet Toilet # Voids 1 1 - Constitutional General appearance: Present: obese - Respiratory Details: Mild left lower base wheezing Decreased breath sounds bilaterally at the bases - Cardiovascular Rhythm: regular Heart sounds: normal: S1, S2 - Gastrointestinal Gastrointestinal Comment(s): Mild tenderness to palpation left lower quadrant General gastrointestinal: Present: decreased bowel sounds, soft - Psychiatric Psychiatric: Present: A&O x's 3, appropriate affect, intact judgment & insight - Labs CBC & Chem 7: 10/17/16 10:14 10/17/16 10:14 Labs: Abnormal Lab Results - Last 24 Hours (Table) 10/17/16 Range/Units 10:14 Chloride 110 H (98-107) mmol/L Carbon Dioxide 21 L (22-30) mmol/L Glucose 106 H (74-99) mg/dL AST 8 L (14-36) U/L Assessment and Plan Plan: Impression/plan: 1. 51-year-old white female with microperforation of acute diverticulitis/ clinically improved decreased leukocytosis 2. Obesity 3. Uterine fibroid 4. Splenomegaly 5. Appreciate ID consult Plan: 1. Clear liquids 2. Continue IV antibiotics
[2016-10-18 09:46] LABS: Basophils # (A) 0.1 k/uL (0-0.2); Basophils % (A) 1 %; CH 30.5; CHCM 33.6; Eosinophils # (A) 0.1 k/uL (0-0.7); Eosinophils % (A) 2 %; HCT 37.2 % (34.0-46.0); HDW 2.67; HGB 12.5 gm/dL (11.4-16.0); Luc # (Auto) 0.07; Luc % (Auto) 1; Lymphocytes # (A) 1.1 k/uL (1.0-4.8); Lymphocytes % (A) 17 %; MCH 30.6 pg (25.0-35.0); MCHC 33.5 g/dL (31.0-37.0); MCV 91.3 fL (80.0-100.0); Mean Platelet Volume 7.4; Monocytes # (A) 0.3 k/uL (0-1.0); Monocytes % (A) 6 %; Neutrophils # (A) 4.4 k/uL (1.3-7.7); Neutrophils % (A) 73 %; RBC 4.07 m/uL (3.80-5.40); WBC (Perox) 6.24
[2016-10-19] MEDS: HYDROmorphone 1 MG/ML 1 ML SYRINGE IV PRN ×2 (05:37→14:26)
[2016-10-19] MEDS: metroNIDAZOLE-NS PMX 500 MG in SALINE 1 100ML.BAG IVPB SCH ×3 (05:37→20:12)
[2016-10-19] MEDS: PIPERACILLIN-TAZOBACTAM 3.375 GM in DEXTROSE/WATER 1 50ML.BAG IVPB SCH ×3 (08:28→23:37)
--- NOTE | 2016-10-19 09:19 | CDI ---
In responding to this query, please exercise your independent professional judgment. The [facility] Coding Staff and Clinical Documentation Specialists appreciate your assistance in clarifying documentation, maintaining compliance with coding guidelines, accurately documenting patients condition and capturing severity of illness. The fact that a question is asked does not imply that any particular answer is desired or expected. Communication forms are a method of clarifying documentation and are not made part of the Legal Health Record. Thank you in advance for your clarification. Last Revision, March [address] [place] [address] Documentation Clarification Form Date: 10/19/2016 9:11:00 AM From: Nalini Jean RN, CCDS Admit Date: 10/16/2016 10:31:00 PM Patient Name: Demetrice Edwards Visit Number: [id number] Dr. Marie Betancur History/Risk Factors: Diverticulitis with microperforation, ovarian cyst Clinical Indicators: Vital Signs: Temp 98.9, HR 77, RR 18, B/P 129/70, spo2 99% ra WBC: 12.8/7.6/6 Urinalysis: cloudy, trace protein, small blood, +Nitrate, moderate Leukocyte esterase, 29 WBC, many bacteria, many mucus Urine Culture: not done Treatment: Antibiotics: Zosyn 3.375gm IVPB Q 8 hrs Other: 1L IVF Bolus Please document the condition that these clinical indicators signify, whether Present on Admission, and cause if known: UTI Due to Sepsis? If due to catheter, device or implant, please document Specify organism, if known Identify location of infection (if known) Bladder, Kidney, Urethra, etc.? Pyelonephritis Renal Stone Contaminated specimen Unable to determine Other Please document in your progress notes and discharge summary in order to capture severity of illness and risk of mortality. Include clinical findings that support your diagnosis. FYI: Press F11 to launch patient chart. Place X here if this finding has no clinical significance, is not applicable or if you are not able to provide any additional documentation. MTDD
[2016-10-19] MEDS: PANTOPRAZOLE 40 MG/10 ML VIAL IVP SCH (10:50)
[2016-10-19] MEDS: SODIUM CHLORIDE 0.9% 1,000 ML IV SCH ×2 (10:50→20:19)
[2016-10-19] MEDS: HEPARIN SODIUM,PORCINE 5,000 UNIT/ML 1 ML VIAL SQ SCH ×2 (10:51→20:14)
--- NOTE | 2016-10-19 11:21 | P.PN ---
Subjective 51-year-old female seen and evaluated states the abdominal pain has improved. Patient is asking to the diet to be advanced. Patient states feeling better with an improvement of the abdominal discomfort. Patient is being treated for CAT scan of the abdomen pelvis findings of a microperforation of diverticulitis Objective - Vital Signs Vital signs: Vital Signs Temp 97.5 F L 10/19/16 07:00 Pulse 70 10/19/16 07:00 Resp 18 10/19/16 07:00 BP 146/72 10/19/16 07:00 Pulse Ox 94 L 10/19/16 07:00 Intake & Output 10/18/16 10/19/16 10/19/16 18:59 06:59 18:59 Intake Total 480 300 Balance 480 300 Intake: Oral 480 300 Other: Voiding Method Toilet # Voids 2 2 - Constitutional Constitutional Comment(s): Physical exam 51-year-old female resting in bed appears no acute distress states pain medication effective for pain control Lungs essentially clear adequate air movement on room air Heart S1-S2 audible and regular Abdomen soft not distended nontender bowel tones present patient states urinating no difficulty no frequent stooling Extremities no evidence of edema - Labs CBC & Chem 7: 10/18/16 08:10 10/17/16 10:14 Assessment and Plan Plan: Impression Present on admission left lower quadrant pain due to acute diverticulitis as evident on a CAT scan abdomen pelvis Perforation of sigmoid colon Perforation of sigmoid colon due to diverticulitis acute Present on admission leukocytosis improved Obesity BMI 35 Current every day smoker Ovarian cyst A UTI suspect contaminated specimen Plan We'll repeat a urinalysis Pain control Continue with recommendations by infectious disease IV antibiotics as ordered Zosyn and Flagyl DVT and GI prophylaxis IV fluid at 100 and hour monitor the response The above dictated assessment and findings were discussed with dr shruthi khan . Impression and the plan of care have been dictated as directed. Payal Baez nurse practitioner acting as a scribe for dr shruthi khan
[2016-10-19 16:12] LABS: Appearance,Urine Clear (Clear); Bacteria,Urine Rare /hpf; Bilirubin,Urine Negative (Negative); Glucose,Urine (UA) Negative (Negative); Ketones,Urine 1+ (Negative); Leukocyte Esterase,Urine Small (Negative); Mucus,Urine Rare /hpf; Nitrite,Urine Negative (Negative); Particle Count 2259; Protein,Urine Trace (Negative); RBC,Urine 6 /hpf (0-5); Specific Gravity,Urine 1.023 (1.001-1.035); Squamous Epithelial Cell,Urine 4 /hpf (0-4); UA Billing (MACRO vs. MICRO) MICRO; WBC,Urine 3 /hpf (0-5)
[2016-10-19] MEDS: KETOROLAC 30 MG/ML 1 ML VIAL IVP PRN (20:12)
--- NOTE | 2016-10-19 23:18 | P.PN ---
Subjective Principal diagnosis: fever abdominal pain 51-year-old female presents to Hospital with the onset and rapid worsening of abdominal pain. His left lower quadrant location. Associated with significant discomfort and a sharp stabbing manner. No physical maneuvers allowed improvement of the pain. After she presented to the emergency center. Because of the abdominal pain and evidence of leukocytosis a CT scan was performed. This verified evidence of sigmoid diverticulitis and a microperforation. Antibiotic therapy has been requested. The patient continues to have significant discomfort in the left lower quadrant. She had some nausea that resolved. She's had no further emesis. She is only on ice chips at this time. She's denying high-grade fever chills rigors or sweats. She's not had difficulties with diverticulitis in the past. She is 51 is not yet a screening colonoscopy as of yet. Still pain but is improved enjoying the enhanced diet. Objective - Vital Signs Vital signs: Vital Signs Temp 97.5 F L 10/19/16 15:00 Pulse 64 10/19/16 15:00 Resp 19 10/19/16 15:00 BP 133/82 10/19/16 15:00 Pulse Ox 94 L 10/19/16 15:00 Intake & Output 10/19/16 10/19/16 10/20/16 06:59 18:59 06:59 Intake Total 300 Balance 300 Intake: Oral 300 Other: # Voids 2 2 1 - Exam 51-year-old woman who is modestly comfortable at this time. HEENT: Anicteric conjunctiva are pink and moist nasal mucosa grossly intact without significant lesions, there is no thrush. Neck: The neck is supple without significant lymphadenopathy or thyromegaly. Lungs: Symmetrical air entry is noted. Brachial wheezes are heard. No bronchial sounds. No dullness or egophony. Heart: Regular rate and rhythm with an audible S1-S2, no S3 no S4. There is no significant murmur click or rub, PMI was nondisplaced. Abdomen: Positive bowel sounds , the abdomen is soft but has distinct tenderness in left lower quadrant. The rest of the abdomen is benign. There is no guarding or rebound. There is no palpable masses. There was no organomegaly. Extremities: The upper extremities have excellent pulses they are symmetric, no significant petechiae or telangiectasia. No splinter hemorrhages were noted. The lower extremities are free from significant edema. The peripheral pulses were 2+ and symmetric. Neuro: Awake alert oriented to person place and time. There are no acute new gross focal sensory motor deficits. - Labs CBC & Chem 7: 10/18/16 08:10 10/17/16 10:14 Labs: Abnormal Lab Results - Last 24 Hours (Table) 10/19/16 Range/Units 15:58 Urine Protein Trace H (Negative) Urine Ketones 1+ H (Negative) Urine Blood Small H (Negative) Ur Leukocyte Esterase Small H (Negative) Urine RBC 6 H (0-5) /hpf Urine Bacteria Rare H (None) /hpf Urine Mucus Rare H (None) /hpf Laboratory Results WBC 6.0 k/uL (3.8-10.6) 10/18/16 08:10 RBC 4.07 m/uL (3.80-5.40) 10/18/16 08:10 Hgb 12.5 gm/dL (11.4-16.0) 10/18/16 08:10 Hct 37.2 % (34.0-46.0) 10/18/16 08:10 MCV 91.3 fL (80.0-100.0) 10/18/16 08:10 MCH 30.6 pg (25.0-35.0) 10/18/16 08:10 MCHC 33.5 g/dL (31.0-37.0) 10/18/16 08:10 RDW 13.0 % (11.5-15.5) 10/18/16 08:10 Plt Count 216 k/uL (150-450) 10/18/16 08:10 Neutrophils % 73 % 10/18/16 08:10 Lymphocytes % 17 % 10/18/16 08:10 Monocytes % 6 % 10/18/16 08:10 Eosinophils % 2 % 10/18/16 08:10 Basophils % 1 % 10/18/16 08:10 Neutrophils # 4.4 k/uL (1.3-7.7) 10/18/16 08:10 Lymphocytes # 1.1 k/uL (1.0-4.8) 10/18/16 08:10 Monocytes # 0.3 k/uL (0-1.0) 10/18/16 08:10 Eosinophils # 0.1 k/uL (0-0.7) 10/18/16 08:10 Basophils # 0.1 k/uL (0-0.2) 10/18/16 08:10 Sodium 140 mmol/L (137-145) 10/17/16 10:14 Potassium 4.1 mmol/L (3.5-5.1) 10/17/16 10:14 Chloride 110 mmol/L (98-107) H 10/17/16 10:14 Carbon Dioxide 21 mmol/L (22-30) L 10/17/16 10:14 Anion Gap 9 mmol/L 10/17/16 10:14 BUN 13 mg/dL (7-17) 10/17/16 10:14 Creatinine 0.73 mg/dL (0.52-1.04) 10/17/16 10:14 Est GFR (MDRD) Af Amer >60 (>60 ml/min/1.73 sqM) 10/17/16 10:14 Est GFR (MDRD) Non-Af >60 (>60 ml/min/1.73 sqM) 10/17/16 10:14 Glucose 106 mg/dL (74-99) H 10/17/16 10:14 Calcium 8.8 mg/dL (8.4-10.2) 10/17/16 10:14 Total Bilirubin 0.9 mg/dL (0.2-1.3) 10/17/16 10:14 AST 8 U/L (14-36) L 10/17/16 10:14 ALT 20 U/L (9-52) 10/17/16 10:14 Alkaline Phosphatase 66 U/L (38-126) 10/17/16 10:14 Total Protein 6.6 g/dL (6.3-8.2) 10/17/16 10:14 Albumin 3.6 g/dL (3.5-5.0) 10/17/16 10:14 Amylase 53 U/L (30-110) 10/16/16 19:49 Lipase 52 U/L (23-300) 10/16/16 19:49 Urine Color Light Red 10/19/16 15:58 Urine Appearance Clear (Clear) 10/19/16 15:58 Urine pH 6.0 (5.0-8.0) 10/19/16 15:58 Ur Specific [place] 1.023 (1.001-1.035) 10/19/16 15:58 Urine Protein Trace (Negative) H 10/19/16 15:58 Urine Glucose (UA) Negative (Negative) 10/19/16 15:58 Urine Ketones 1+ (Negative) H 10/19/16 15:58 Urine Blood Small (Negative) H 10/19/16 15:58 Urine Nitrite Negative (Negative) 10/19/16 15:58 Urine Bilirubin Negative (Negative) 10/19/16 15:58 Urine Urobilinogen 2.0 mg/dL (<2.0) 10/19/16 15:58 Ur Leukocyte Esterase Small (Negative) H 10/19/16 15:58 Urine RBC 6 /hpf (0-5) H 10/19/16 15:58 Urine WBC 3 /hpf (0-5) 10/19/16 15:58 Ur Squamous Epith Cells 4 /hpf (0-4) 10/19/16 15:58 Urine Bacteria Rare /hpf (None) H 10/19/16 15:58 Urine Mucus Rare /hpf (None) H 10/19/16 15:58 Assessment and Plan (1) Diverticulitis Status: Acute (2) Leukocytosis Narrative/Plan: 51-year-old female who has a history of tobacco use presents to Hospital significant abdominal pain. Left lower quadrant in location. The most severe pain that she's had in her life. There is evidence of leukocytosis at admission. In counseling computed tomography scan was performed and verified evidence of a significant diverticulitis with a localized microperforation of the sigmoid colon. Patient's exam also corresponds well to the CT findings. The very localized problem. Patient's been evaluated by surgery. Current goal will be for a course of antibiotic therapy. And then one well have an outpatient colonoscopy to evaluate for any next needed steps. Pain control is adequate. Leukocytosis is improving. She has no severe drug ALLERGIES. As she improves completion course of Augmentin at discharge should be adequate. Status: Acute (3) Perforation of sigmoid colon Status: Acute (4) Perforation of sigmoid colon due to diverticulitis Status: Acute
[2016-10-20] MEDS: SODIUM CHLORIDE 0.9% 1,000 ML IV SCH ×2 (05:30→16:38)
[2016-10-20] MEDS: metroNIDAZOLE 500 MG TAB PO SCH ×3 (05:30→22:14)
[2016-10-20] MEDS: HYDROmorphone 1 MG/ML 1 ML SYRINGE IV PRN ×2 (05:33→22:14)
[2016-10-20] MEDS: PIPERACILLIN-TAZOBACTAM 3.375 GM in DEXTROSE/WATER 1 50ML.BAG IVPB SCH ×3 (08:12→23:40)
[2016-10-20] MEDS: PANTOPRAZOLE 40 MG/10 ML VIAL IVP SCH (08:13)
[2016-10-20] MEDS: HEPARIN SODIUM,PORCINE 5,000 UNIT/ML 1 ML VIAL SQ SCH ×3 (08:13→22:00)
[2016-10-20] MEDS ORDERED: RX INFO: IV CONTRAST WAS GIVEN 1 EACH MISC MISCELLANE PRN (08:21)
--- NOTE | 2016-10-20 08:24 | PN ---
DATE OF SERVICE: 10/19/2016 This 51-year-old woman, who was admitted with acute diverticulitis also had mass in the lower thigh. The patient was suspected to have UTI also. No chest pain or palpitation. No fever. On exam, alert and oriented x3. Pulse is 64, blood pressure 133/82, respiratory 19. Temperature 97.4, pulse ox 94% on room air. HEENT: Conjunctivae normal. NECK: No jugular venous distention. CARDIOVASCULAR: S1 and S2, muffled. RESPIRATORY: Breath sounds diminished at the bases. No rhonchi, no crackles. ABDOMEN: Soft. Mild diffuse discomfort. No guarding, no rigidity. LEGS: No edema. NERVOUS SYSTEM: No focal deficits. LABS: WBC 12.8. UA noted. ASSESSMENT: 1. Acute abdominal pain with acute diverticulitis on broad-spectrum IV antibiotics on Flagyl and Zosyn. 2. Possible urinary tract infection, present on admission without any evidence of sepsis. 3. History of nicotine dependence. 4. Mass on the right lower thigh. 5. Increased WBC, present on admission, improved. RECOMMENDATIONS AND DISCUSSION: In this 51-year-old woman who presented with multiple complex medical issues, we will monitor the patient closely. Closely follow with surgery. Otherwise guarded prognosis. Further recommendations to follow. Symptomatic treatment provided.
[2016-10-20] MEDS: IOHEXOL 350 MG/ML 25 ML BOTTLE (ORAL USE) PO PRN ×2 (08:37→09:41)
[2016-10-20 09:00] LABS: Basophils # (A) 0.1 k/uL (0-0.2); Basophils % (A) 1 %; CH 30.9; CHCM 34.5; Eosinophils # (A) 0.2 k/uL (0-0.7); Eosinophils % (A) 4 %; HCT 35.9 % (34.0-46.0); HDW 2.78; Luc # (Auto) 0.08; Luc % (Auto) 2; Lymphocytes # (A) 1.3 k/uL (1.0-4.8); Lymphocytes % (A) 31 %; MCH 30.2 pg (25.0-35.0); MCHC 33.6 g/dL (31.0-37.0); MCV 89.9 fL (80.0-100.0); Mean Platelet Volume 7.6; Monocytes # (A) 0.3 k/uL (0-1.0); Monocytes % (A) 6 %; Neutrophils # (A) 2.4 k/uL (1.3-7.7); Neutrophils % (A) 56 %; RBC 3.99 m/uL (3.80-5.40); RDW 12.7 % (11.5-15.5); WBC 4.2 k/uL (3.8-10.6); WBC (Perox) 4.21
[2016-10-20 09:09] LABS: ALT 21 U/L (9-52); AST 12 U/L (14-36); Alkaline Phosphatase 59 U/L (38-126); Anion Gap 10 mmol/L; Blood Urea Nitrogen 11 mg/dL (7-17); Calcium 8.6 mg/dL (8.4-10.2); Carbon Dioxide 20 mmol/L (22-30); Chloride 111 mmol/L (98-107); Glucose 91 mg/dL (74-99); Non-African American GFR(MDRD) >60 (>60 ml/min/1.73 sqM); Potassium 3.9 mmol/L (3.5-5.1); Sodium 141 mmol/L (137-145); Total Bilirubin 0.8 mg/dL (0.2-1.3); Total Protein 6.4 g/dL (6.3-8.2)
--- NOTE | 2016-10-20 10:58 | CT ---
EXAMINATION TYPE: CT abdomen pelvis w con DATE OF EXAM: 10/20/2016 10:26 AM COMPARISON: 10/16/2016 HISTORY: 51-year-old female with history of diverticulitis, ovarian cyst TECHNIQUE: Contiguous axial scanning of the abdomen and pelvis following administration of 100 ml Omn ipaque 300 IV contrast. Delayed images through the kidneys and coronal/sagittal reconstructions perf ormed. CT DLP: 2057.30 mGycm Automated exposure control for dose reduction was used. FINDINGS: The heart is normal size without pericardial effusion. Increasing dependent atelectasis right greater than left lung bases. No pleural effusion. No focal liver lesion or biliary ductal dilatation. Portal venous system is patent. Gallbladder borderline to mildly hydropic measuring 4.4 cm wide without abnormal wall thickening or s urrounding inflammation, likely due to fasting state. Adrenal glands, kidneys, spleen, and pancreas show no gross abnormal body. Scattered small lower abdominal retroperitoneal lymph nodes are redemonstrated, similar borderline to mildly enlarged measuring 8 mm. Similar findings along the left iliac chain. Largest lymph node nathalie ures 1.3 cm along the left external iliac chain, unchanged. No dilated small bowel, free fluid, or free air. Normal appendix. Redemonstrated sigmoid diverticulosis with inflammation and surrounding moderate fat stranding a long the proximal to mid sigmoid. The associated microperforation mentioned previously with adjacent locu le of extraluminal air is slightly larger now measuring 1.6 cm but there is been no progression to ab scess formation and no additional free air seen. Bladder nondistended. Redemonstrated large heterogeneous fibroid posteriorly along the left body nathalie uring 6.6 cm. No abnormal fluid collection in the pelvis. Bones: No osseous destructive process. IMPRESSION: 1. ONGOING MODERATE INFLAMMATION RELATING TO THE PATIENT'S acute sigmoid diverticulitis. Inflammatory changes are similar to possibly minimally improved. 2. Redemonstrated adjacent locule of extraluminal air relating to tiny microperforation. While this l ocule of air is slightly larger, there has been no progression to abscess or additional free air seen . 3. Nonenlarged and borderline to mildly enlarged scattered retroperitoneal and iliac chain lymph node s particularly on the left are probably reactive. Recommend follow-up in 3 - 6 months to ensure stabi lity/resolution. 4. Large heterogeneous 6.6 cm focal fibroid posterior uterus. Underlying degeneration and necrosis is not excluded given the heterogeneity.
[2016-10-20] MEDS ORDERED: HYDROcodone/APAP 7.5-325MG 1 EACH TAB PO PRN (11:43)
--- NOTE | 2016-10-20 11:48 | P.PN ---
Subjective 51-year-old seen and examined this morning did report having an episode during the night of left lower quadrant pain did require IV dilaudid for pain relief. Repeat CAT scan of the abdomen pelvis with contrast was ordered this morning results reviewed no dilated small bowel no free air normal appendix ongoing moderate inflammation relating to the patient's acute sigmoid diverticulitis showing an improvement redemonstrated a Suresh locule relating to tiny microperforation no progression of the abscess. Did note the patient is being followed by infectious disease Dr. Ugarte Objective - Vital Signs Vital signs: Vital Signs Temp 97.0 F L 10/20/16 07:00 Pulse 60 10/20/16 07:00 Resp 18 10/20/16 07:00 BP 118/72 10/20/16 07:00 Pulse Ox 95 10/20/16 07:00 Intake & Output 10/19/16 10/20/16 10/20/16 18:59 06:59 18:59 Other: # Voids 2 0 1 - Exam Physical exam 51-year-old female resting in bed continues to report having left lower quadrant pain has not completely resolved Lungs essentially clear adequate air movement Heart S1-S2 audible regular Abdomen slight tenderness left lower quadrant active bowel tones states no stool states passing gas direct reports no nausea Extremities no edema - Labs CBC & Chem 7: 10/20/16 08:20 10/20/16 08:20 Labs: Abnormal Lab Results - Last 24 Hours (Table) 10/19/16 10/20/16 Range/Units 15:58 08:20 Chloride 111 H (98-107) mmol/L Carbon Dioxide 20 L (22-30) mmol/L AST 12 L (14-36) U/L Albumin 3.3 L (3.5-5.0) g/dL Urine Protein Trace H (Negative) Urine Ketones 1+ H (Negative) Urine Blood Small H (Negative) Ur Leukocyte Esterase Small H (Negative) Urine RBC 6 H (0-5) /hpf Urine Bacteria Rare H (None) /hpf Urine Mucus Rare H (None) /hpf Microbiology - Last 24 Hours (Table) 10/19/16 15:58 Urine Culture - Preliminary Urine,Voided Assessment and Plan Plan: Impression Present on admission left lower quadrant pain due to acute diverticulitis as evident on a CAT scan abdomen pelvis Perforation of sigmoid colon Perforation of sigmoid colon due to diverticulitis acute Present on admission leukocytosis improved Obesity BMI 35 Current every day smoker Ovarian cyst A UTI suspect contaminated specimen repeat urinalysis negative Repeat CAT scan abdomen and pelvis localized microperforation of the sigmoid colon Plan Advance diet to low fiber Pain control Continue with recommendations by infectious disease IV antibiotics as ordered Zosyn and Flagyl DVT and GI prophylaxis IV fluid at 100 and hour monitor the response Repeat labs in the morning The above dictated assessment and findings were discussed with dr shruthi khan . Impression and the plan of care have been dictated as directed. Payal Beaz nurse practitioner acting as a scribe for dr shruthi khan
[2016-10-20] MEDS: KETOROLAC 30 MG/ML 1 ML VIAL IVP PRN (16:41)
--- NOTE | 2016-10-20 22:28 | PN ---
DATE OF SERVICE: 10/20/2016 This 51-year-old woman who was admitted with acute abdominal pain with diverticulitis is being closely monitored. Repeat CT scan of the abdomen was done which showed ongoing moderate inflammation and sigmoid diverticulitis and locule of extraluminal air relating to tiny microperforation and retroperitoneal lymphadenopathy with a fibroid uterus. The patient is on broad-spectrum IV antibiotics. Surgery and Infectious Disease are following the patient closely. On exam, alert and oriented x3. Pulse is 54, blood pressure 144/99, respiration 19, temperature 97.4, pulse ox 94% on room air. HEENT: Conjunctivae normal. NECK: No jugular venous distention. CARDIOVASCULAR SYSTEM: S1, S2 muffled. RESPIRATORY SYSTEM: Breath sounds diminished at the bases. No rhonchi. No crackles. ABDOMEN: Soft. Mild diffuse discomfort. No guarding. No rigidity. No mass palpable. LEGS: No edema. No swelling. NERVOUS SYSTEM: No focal deficit. LABS: CBC within normal limits. Sodium 141, potassium 3.9. UA noted. ASSESSMENT: 1. Acute abdominal pain with acute diverticulitis with microperforation, on broad-spectrum IV antibiotics. 2. Possible urinary tract infection without any evidence of sepsis. 3. History of nicotine dependence. 4. Increased white count on admission, improving. 5. Local fibroid in the posterior uterus. 6. Retroperitoneal iliac lymphadenopathy. 7. Obesity with a body mass index of 35. 8. History of nicotine dependence. 9. FULL CODE. RECOMMENDATIONS AND DISCUSSION: In this 51-year-old woman who presented with multiple complex medical issues, we will continue the current medication, continue with symptomatic treatment, continue with IV antibiotics, symptomatic treatment. Otherwise, closely follow with Surgery. Further recommendations to follow.
--- NOTE | 2016-10-20 23:09 | P.PN ---
Subjective Principal diagnosis: fever abdominal pain 51-year-old female presents to Hospital with the onset and rapid worsening of abdominal pain. His left lower quadrant location. Associated with significant discomfort and a sharp stabbing manner. No physical maneuvers allowed improvement of the pain. After she presented to the emergency center. Because of the abdominal pain and evidence of leukocytosis a CT scan was performed. This verified evidence of sigmoid diverticulitis and a microperforation. Antibiotic therapy has been requested. The patient continues to have significant discomfort in the left lower quadrant. She had some nausea that resolved. She's had no further emesis. She is only on ice chips at this time. She's denying high-grade fever chills rigors or sweats. She's not had difficulties with diverticulitis in the past. She is 51 is not yet a screening colonoscopy as of yet. Was improving. But with her enhance diet again had increasing amounts of abdominal pain and is developed loose stool. She also developed some nausea and emesis and became quite uncomfortable. Diet has been downgraded back to clear liquids. Zofran has helped her nausea significantly. Objective - Vital Signs Vital signs: Vital Signs Temp 97.4 F L 10/20/16 14:42 Pulse 54 L 10/20/16 14:42 Resp 19 10/20/16 14:42 BP 144/99 10/20/16 14:42 Pulse Ox 95 10/20/16 07:00 Intake & Output 10/20/16 10/20/16 10/21/16 06:59 18:59 06:59 Other: # Voids 0 2 1 # Bowel Movements 1 - Exam 51-year-old woman who is modestly comfortable at this time. HEENT: Anicteric conjunctiva are pink and moist nasal mucosa grossly intact without significant lesions, there is no thrush. Neck: The neck is supple without significant lymphadenopathy or thyromegaly. Lungs: Symmetrical air entry is noted. Brachial wheezes are heard. No bronchial sounds. No dullness or egophony. Heart: Regular rate and rhythm with an audible S1-S2, no S3 no S4. There is no significant murmur click or rub, PMI was nondisplaced. Abdomen: Positive bowel sounds , the abdomen is soft but has distinct tenderness in left lower quadrant. The rest of the abdomen is benign. There is no guarding or rebound. There is no palpable masses. There was no organomegaly. Extremities: The upper extremities have excellent pulses they are symmetric, no significant petechiae or telangiectasia. No splinter hemorrhages were noted. The lower extremities are free from significant edema. The peripheral pulses were 2+ and symmetric. Neuro: Awake alert oriented to person place and time. There are no acute new gross focal sensory motor deficits. - Labs CBC & Chem 7: 10/20/16 08:20 10/20/16 08:20 Labs: Abnormal Lab Results - Last 24 Hours (Table) 10/20/16 Range/Units 08:20 Chloride 111 H (98-107) mmol/L Carbon Dioxide 20 L (22-30) mmol/L AST 12 L (14-36) U/L Albumin 3.3 L (3.5-5.0) g/dL Microbiology - Last 24 Hours (Table) 10/19/16 15:58 Urine Culture - Final Urine,Voided Laboratory Results WBC 4.2 k/uL (3.8-10.6) 10/20/16 08:20 RBC 3.99 m/uL (3.80-5.40) 10/20/16 08:20 Hgb 12.0 gm/dL (11.4-16.0) 10/20/16 08:20 Hct 35.9 % (34.0-46.0) 10/20/16 08:20 MCV 89.9 fL (80.0-100.0) 10/20/16 08:20 MCH 30.2 pg (25.0-35.0) 10/20/16 08:20 MCHC 33.6 g/dL (31.0-37.0) 10/20/16 08:20 RDW 12.7 % (11.5-15.5) 10/20/16 08:20 Plt Count 232 k/uL (150-450) 10/20/16 08:20 Neutrophils % 56 % 10/20/16 08:20 Lymphocytes % 31 % 10/20/16 08:20 Monocytes % 6 % 10/20/16 08:20 Eosinophils % 4 % 10/20/16 08:20 Basophils % 1 % 10/20/16 08:20 Neutrophils # 2.4 k/uL (1.3-7.7) 10/20/16 08:20 Lymphocytes # 1.3 k/uL (1.0-4.8) 10/20/16 08:20 Monocytes # 0.3 k/uL (0-1.0) 10/20/16 08:20 Eosinophils # 0.2 k/uL (0-0.7) 10/20/16 08:20 Basophils # 0.1 k/uL (0-0.2) 10/20/16 08:20 Sodium 141 mmol/L (137-145) 10/20/16 08:20 Potassium 3.9 mmol/L (3.5-5.1) 10/20/16 08:20 Chloride 111 mmol/L (98-107) H 10/20/16 08:20 Carbon Dioxide 20 mmol/L (22-30) L 10/20/16 08:20 Anion Gap 10 mmol/L 10/20/16 08:20 BUN 11 mg/dL (7-17) 10/20/16 08:20 Creatinine 0.65 mg/dL (0.52-1.04) 10/20/16 08:20 Est GFR (MDRD) Af Amer >60 (>60 ml/min/1.73 sqM) 10/20/16 08:20 Est GFR (MDRD) Non-Af >60 (>60 ml/min/1.73 sqM) 10/20/16 08:20 Glucose 91 mg/dL (74-99) 10/20/16 08:20 Calcium 8.6 mg/dL (8.4-10.2) 10/20/16 08:20 Total Bilirubin 0.8 mg/dL (0.2-1.3) 10/20/16 08:20 AST 12 U/L (14-36) L 10/20/16 08:20 ALT 21 U/L (9-52) 10/20/16 08:20 Alkaline Phosphatase 59 U/L (38-126) 10/20/16 08:20 Total Protein 6.4 g/dL (6.3-8.2) 10/20/16 08:20 Albumin 3.3 g/dL (3.5-5.0) L 10/20/16 08:20 Amylase 53 U/L (30-110) 10/16/16 19:49 Lipase 52 U/L (23-300) 10/16/16 19:49 Urine Color [place] Red 10/19/16 15:58 Urine Appearance Clear (Clear) 10/19/16 15:58 Urine pH 6.0 (5.0-8.0) 10/19/16 15:58 Ur Specific [place] 1.023 (1.001-1.035) 10/19/16 15:58 Urine Protein Trace (Negative) H 10/19/16 15:58 Urine Glucose (UA) Negative (Negative) 10/19/16 15:58 Urine Ketones 1+ (Negative) H 10/19/16 15:58 Urine Blood Small (Negative) H 10/19/16 15:58 Urine Nitrite Negative (Negative) 10/19/16 15:58 Urine Bilirubin Negative (Negative) 10/19/16 15:58 Urine Urobilinogen 2.0 mg/dL (<2.0) 10/19/16 15:58 Ur Leukocyte Esterase Small (Negative) H 10/19/16 15:58 Urine RBC 6 /hpf (0-5) H 10/19/16 15:58 Urine WBC 3 /hpf (0-5) 10/19/16 15:58 Ur Squamous Epith Cells 4 /hpf (0-4) 10/19/16 15:58 Urine Bacteria Rare /hpf (None) H 10/19/16 15:58 Urine Mucus Rare /hpf (None) H 10/19/16 15:58 Microbiology 10/19/16 15:58 Urine,Voided Urine Culture - Final Assessment and Plan (1) Diverticulitis Status: Acute (2) Leukocytosis Narrative/Plan: 51-year-old female who has a history of tobacco use presents to Hospital significant abdominal pain. Left lower quadrant in location. The most severe pain that she's had in her life. There is evidence of leukocytosis at admission. In counseling computed tomography scan was performed and verified evidence of a significant diverticulitis with a localized microperforation of the sigmoid colon. Patient's exam also corresponds well to the CT findings. The very localized problem. Patient's been evaluated by surgery. Current goal will be for a course of antibiotic therapy. And then one well have an outpatient colonoscopy to evaluate for any next needed steps. Pain control is adequate. Leukocytosis is improving. She has no severe drug ALLERGIES. Continue current intravenous antibiotic therapy at this time with her current symptoms, but if she improves completion course of Augmentin at discharge should be adequate. Status: Acute (3) Perforation of sigmoid colon Status: Acute (4) Perforation of sigmoid colon due to diverticulitis Status: Acute
[2016-10-21 00:17] VITALS: RESP 16
[2016-10-21] MEDS: SODIUM CHLORIDE 0.9% 1,000 ML IV SCH ×2 (04:58→12:06)
[2016-10-21] MEDS: KETOROLAC 30 MG/ML 1 ML VIAL IVP PRN (04:59)
[2016-10-21] MEDS: metroNIDAZOLE 500 MG TAB PO SCH ×2 (06:25→14:28)
[2016-10-21] MEDS ORDERED: PANTOPRAZOLE 40 MG TABLET PO SCH (07:30)
[2016-10-21 07:36] VITALS: BP 133/72; TEMP 97.1
[2016-10-21] MEDS: PIPERACILLIN-TAZOBACTAM 3.375 GM in DEXTROSE/WATER 1 50ML.BAG IVPB SCH (08:37)
[2016-10-21] MEDS: HEPARIN SODIUM,PORCINE 5,000 UNIT/ML 1 ML VIAL SQ SCH (08:37)
[2016-10-21 09:09] VITALS: PULSE 54
[2016-10-21 10:31] LABS: Basophils # (A) 0.1 k/uL (0-0.2); Basophils % (A) 1 %; CH 30.9; CHCM 34.1; Eosinophils # (A) 0.1 k/uL (0-0.7); Eosinophils % (A) 3 %; HCT 38.8 % (34.0-46.0); HDW 2.79; HGB 13.1 gm/dL (11.4-16.0); Luc # (Auto) 0.05; Luc % (Auto) 1; Lymphocytes % (A) 22 %; MCH 30.8 pg (25.0-35.0); MCHC 33.9 g/dL (31.0-37.0); Mean Platelet Volume 7.6; Monocytes # (A) 0.2 k/uL (0-1.0); Monocytes % (A) 5 %; Neutrophils % (A) 68 %; RBC 4.27 m/uL (3.80-5.40); RDW 12.6 % (11.5-15.5); WBC 4.4 k/uL (3.8-10.6); WBC (Perox) 4.47
[2016-10-21 11:10] LABS: ALT 21 U/L (9-52); AST 17 U/L (14-36); Alkaline Phosphatase 67 U/L (38-126); Anion Gap 10 mmol/L; Blood Urea Nitrogen 11 mg/dL (7-17); Calcium 8.7 mg/dL (8.4-10.2); Carbon Dioxide 22 mmol/L (22-30); Chloride 108 mmol/L (98-107); Glucose 122 mg/dL (74-99); Non-African American GFR(MDRD) >60 (>60 ml/min/1.73 sqM); Potassium 3.9 mmol/L (3.5-5.1); Sodium 140 mmol/L (137-145); Total Bilirubin 0.6 mg/dL (0.2-1.3); Total Protein 6.8 g/dL (6.3-8.2)
--- NOTE | 2016-10-21 12:30 | P.DS ---
Providers Date of admission: 10/16/16 22:31 Expected date of discharge: 10/21/16 Attending physician: Gail Hodges Consults: 10/16/16 22:28 Consult Physician Urgent Consulting Provider: Aamir Bautista Consult Reason/Comments: Diverticulitis Do you want consulting provider notified?: Yes 10/16/16 22:38 Consult Physician Urgent Consulting Provider: Antoine Ugarte Consult Reason/Comments: diverticulitis Do you want consulting provider notified?: Yes Primary care physician: Stated None Hospital Course: A 51-year-old female presented on the day of admission to the emergency room to be evaluated for chief complaint of developing left lower quadrant abdominal pain associated with nausea vomiting. Patient describes the discomfort as a sharp stabbing pain. Patient denied any prior episodes. In the emergency room the patient did have a CAT scan of the abdomen and pelvis. It did show evidence of sigmoid diverticulitis with a microperforation. Leukocytosis was also noted. Patient was afebrile. Patient was admitted to the services of the attending with an infectious disease consultation requested. Patient was followed by Dr. Ugarte. Patient was started on IV antibiotics and bowel rest with IV hydration. Patient has not had a screening colonoscopy this was discussed with the patient that this will need to be evaluated in the outpatient setting in 6-8 weeks. Over the course of the hospitalization the diet was able to be advanced there was less discomfort in the left lower quadrant. Infectious disease indicated the patient could be discharged on oral antibiotic Augmentin white count trended down the white count on the day of discharge was 4.4. On admission 12.8. Patient remained afebrile. Abdomen remains soft patient was passing gas and stool. Patient was up ambulating in the hallway was requesting to be discharged Dietitian to see the patient did provide the patient with instructions on a low fiber diet patient was felt to be hemodynamically stable and appropriate proceed with a discharge Impression Present on admission left lower quadrant abdominal pain due to acute diverticulitis with evidence of microperforation of the sigmoid colon as evident on a CAT scan abdomen pelvis Perforation of sigmoid colon due to diverticulitis acute Present on admission leukocytosis improved Obesity BMI 35 Current every day smoker Ovarian cyst A UTI suspect contaminated specimen repeat urinalysis negative no evidence of a UTI Repeat CAT scan abdomen and pelvis localized microperforation of the sigmoid colon The above dictated assessment and findings were discussed with dr shruthi khan . Impression and the plan of care have been dictated as directed. Payal Baez nurse practitioner acting as a scribe for dr shruthi khan Patient Condition at Discharge: Stable Plan - Discharge Summary New Discharge Prescriptions: Amoxic-Pot Clav 875-125Mg [Augmentin 875-125] 1 tab PO Q12HR #20 tablet Discharge Medication List Acetaminophen Tab [Tylenol] 650 mg PO Q6HR PRN tab 10/21/16 [Rx] Amoxic-Pot Clav 875-125Mg [Augmentin 875-125] 1 tab PO Q12HR #20 tablet [Rx] Follow up Appointment(s)/Referral(s): None,Stated [Primary Care Provider] - 1-2 days Gail Hodges MD [STAFF PHYSICIAN] - 10/29/16 Activity/Diet/Wound Care/Special Instructions: Patient has been instructed to return to the nearest emergency room if abdominal pain occurs Dietitian to instruct patient on a low fiber diet Discharge Disposition: HOME SELF-CARE
--- NOTE | 2016-10-21 20:45 | PN ---
DATE OF SERVICE: 10/21/2016 This 51-year-old woman admitted with abdominal pain, acute diverticulitis and microperfusion is being closely monitored. No chest pain. No palpitations. No fever. On exam, alert and oriented x3. Pulse 61, blood pressure 130/72. Respiratory rate 16, temperature 97.4, pulse ox 92% on room air. HEENT: Conjunctivae normal. NECK: No jugular venous distention. CARDIOVASCULAR: S1, S2 muffled. RESPIRATORY: Breath sounds diminished in the bases. A few scattered rhonchi. ABDOMEN: Soft, no guarding. No rigidity. No mass palpable. LEGS: No edema. No swelling. LABS: CBC within normal limits. Glucose 122. ASSESSMENT: 1. Acute abdominal pain with acute diverticulitis with microperforation on broad-spectrum IV antibiotics. 2. Possible urinary tract infection without any evidence of sepsis, present on admission. 3. History of nicotine dependence. 4. Increased white blood cell count, improving. 5. Local fibroid in the posterior uterus. 6. Retroperitoneal and iliac lymphadenopathy. 7. Obesity with body mass index of 35. 8. History of nicotine dependence. 9. FULL CODE. RECOMMENDATIONS AND DISCUSSION: Recommend to continue symptomatic treatment. I recommend continue current antibiotic. I would recommend follow up with primary physician closely. Continue soft diet. The rest of the per surgery. Further recommendations to follow. MTDD
== END 2016-10-21 15:25 | disposition home or self-care (01) | DRG 392 ==
LOC: EC 16:42 → 4MS4W 22:31
PROVIDERS: ADMIT Surgery; ATTEND Surgery
DX: K57.20 Diverticulitis of large intestine with perforation and abscess without bleeding (principal); R16.1 Splenomegaly, not elsewhere classified; D25.9 Leiomyoma of uterus, unspecified; E66.9 Obesity, unspecified; N83.209 Unspecified ovarian cyst, unspecified side; R59.1 Generalized enlarged lymph nodes; F17.200 Nicotine dependence, unspecified, uncomplicated; R22.41 Localized swelling, mass and lump, right lower limb; D72.829 Elevated white blood cell count, unspecified; Z68.35 Body mass index [BMI] 35.0-35.9, adult
CPT/HCPCS: 36415; 74000; 74177; 80053; 81001; 82150; 83690; 85025; 87086; 87324

== ENCOUNTER 2017-03-02 07:09 | Day surgery (SDC) | payer OTHER ==
[2017-02-26 10:20] VITALS: BMI 33.7
[~2017-03-02 07:09] MED LIST: LACTATED RINGERS 1,000 ML IV ONE
[2017-03-02 08:01] VITALS: TEMP 97.5
[2017-03-02] MEDS ORDERED: LIDOCAINE 1% 20 ML VIAL (10MG/ML) FOR IV START INTRADERMA ONE (08:09)
[2017-03-02] MEDS ORDERED: MIDAZOLAM 2 MG/2 ML VIAL IVP ONE (08:16)
[2017-03-02] MEDS ORDERED: LIDOCAINE 1% INJ 10MG/ML (20 ML MDV) ONE (08:29)
[2017-03-02] MEDS ORDERED: PROPOFOL 10 MG/ML 20 ML VIAL IV ONE (08:29)
--- NOTE | 2017-03-02 09:00 | P.OP ---
Date of Procedure: 03/02/17 Preoperative Diagnosis: Diverticular disease Postoperative Diagnosis: Extensive diverticuli, polyp at 30 cm, internal hemorrhoids Procedure(s) Performed: Colonoscopy Anesthesia: MAC Surgeon: Gail Hodges Estimated Blood Loss (ml): 0 IV fluids (ml): 350 Pathology: other (Polyp at 30 cm) Condition: stable Disposition: PACU Indications for Procedure: Episode of left lower quadrant pain, never had colonoscopy Operative Findings: Extensive diverticuli, polyp at 30 cm, internal hemorrhoids Description of Procedure: Patient was taken to the endoscopy suite and following sedation rectal exam was performed. Patient was noted to have good sphincter tone no masses. Colonoscope was passed through the anus into the rectum. Was passed through the sigmoid colon up to splenic flexure transverse colon hepatic flexure right colon down to the area of the cecum. Circumferential observation the mucosa did not reveal any lesions of concern in the cecum or right colon. There were diverticuli noted to be present even at the area of the cecum however. No mucosal lesions of concern in the transverse colon. As the scope was withdrawn extensive diverticuli were noted in the sigmoid colon. At 30 cm of small mucosal polyp was identified which was removed with snare polypectomy and retrieved. The scope was brought down to the rectum where it was retroflexed internal hemorrhoids identified. Approximately 8 minutes were taken to withdraw the scope from the area of the cecum to the rectum. Impression/plan: 1. Extensive diverticuli 2. Polyp removed from 30 cm and retrieved 3. Internal hemorrhoids Plan: 1. Await results of pathology most likely repeat scope in 3 years 2. Conservative management of diverticuli and hemorrhoids
--- NOTE | 2017-03-02 09:02 | P.DS ---
Providers Attending physician: Gail Hodges Primary care physician: Gracia Drake Plan - Discharge Summary New Discharge Prescriptions: No Action buPROPion HCL [Wellbutrin XL] 150 mg PO BID Atorvastatin [Lipitor] 20 mg PO DAILY Multivitamins, Thera [Multivitamin (formulary)] 1 tab PO DAILY Discharge Medication List Atorvastatin [Lipitor] 20 mg PO DAILY 02/26/17 [History] Multivitamins, Thera [Multivitamin (formulary)] 1 tab PO DAILY 02/26/17 [History ] buPROPion HCL [Wellbutrin XL] 150 mg PO BID 02/26/17 [History] Follow up Appointment(s)/Referral(s): Gail Hodges MD [STAFF PHYSICIAN] - As Needed Activity/Diet/Wound Care/Special Instructions: 1. Diverticular diet Discharge Disposition: HOME SELF-CARE
[2017-03-02 09:04] VITALS: RESP 18
[2017-03-02 09:30] VITALS: BP 141/89; PULSE 70
== END 2017-03-02 09:38 | disposition home or self-care (01) ==
LOC: ORWHC2ENDO 07:09
PROVIDERS: ATTEND Surgery
DX: K57.30 Diverticulosis of large intestine without perforation or abscess without bleeding (principal); K63.5 Polyp of colon; K64.8 Other hemorrhoids; E78.5 Hyperlipidemia, unspecified; F17.200 Nicotine dependence, unspecified, uncomplicated; Z79.899 Other long term (current) drug therapy
CPT/HCPCS: 88305; 45385; J2250; J2001; J2704

== ENCOUNTER → 2017-06-11 | Day surgery (SDC) | payer BC, OTHER ==
[2017-06-11 07:22] VITALS: RESP 16; BMI 35.9
[2017-06-11 09:00] VITALS: BP 139/88; PULSE 71; TEMP 97.4
--- NOTE | 2017-06-11 09:29 | PCN ---
PROCEDURE NOTE PREPROCEDURE DIAGNOSIS: Mammographic abnormality of faint calcifications in the right breast in the midportion of the breast. The patient has very dense breasts. Review of her radiographs revealed the area of calcifications and ultrasound had been performed. The area of calcifications did not show anything of concern on ultrasound and the recommendation was for stereotactic core biopsy of the right breast. The approach used was a lateral to medial approach. The patient was placed on the stereotactic table. The lesion was approached from lateral to medial. It was able to be identified. The skin was prepped using Betadine; 1% lidocaine was used to anesthetize the area of concern. A vacuum-assisted core biopsy was utilized and multiple core biopsies were obtained after pre fire and post fire films were obtained. The radiograph of the specimen revealed only a small number of calcifications and the location of the needle was moved using a more negative X and repeat biopsies were obtained, which at this time revealed more calcifications and radiograph of the specimen. A secure sharmaine was placed. It should be noted that a breast examination was performed prior to the procedure and on breast examination no supraclavicular, cervical, or axillary adenopathy of concern was identified in either the right or left axilla and no dominant mass or nodules of concern had been identified in either breast. Postprocedure radiograph revealed that the secure sharmaine was in the correct location. Review of the radiographs did not reveal any lesions of concern in the left breast and the area of concern in the right breast was in the somewhat central area with very faint calcifications in a dense breast. Therefore, biopsy had been recommended. Please note that the specimen was sent for pathology. The patient will follow up with Dr. Amaya in 1 week. MMODL / IJN: [id number] /
--- NOTE | 2017-06-11 09:53 | MM ---
EXAMINATION TYPE: MG stereo VAD BX RT DATE OF EXAM: 06/11/2017 COMPARISON: 05/13/2017. CLINICAL HISTORY: Subcentimeter group of faint calcifications in the upper outer quadrant of the right breast that were indeterminate on diagnostic mammography and for which stereotactic biopsy was recommended. TECHNIQUE: Stereotactic guided core biopsy of right breast. FINDINGS: The procedure of stereotactic guided core biopsy was explained to the patient. Benefits, alternatives, and risks were discussed. An informed consent was then obtained. Preprocedural timeout was performed. The shortness pathway for biopsy was chosen. Shortness pathway was lateral medial approach. I performed the localization, then surgeon, Dr. Jose Luis Mota performed the remainder of the procedure. A vacuum assisted biopsy gun was used to obtain multiple core samples. The patient tolerated the procedure well without any immediate complication. The patient was kept in the radiology department for short stay after the procedure and then discharged home in stable condition. Targeted calcifications are identified in specimen mammogram. Post biopsy mammogram shows the clip to have migrated along the tract laterally approximately 3.0 cm. Post procedural air is seen at the site of biopsy and no residual calcifications are noted. IMPRESSION: SUCCESSFUL, UNCOMPLICATED STEREOTACTIC GUIDED CORE BIOPSY OF A SUBCENTIMETER GROUP OF FAINT CALCIFICATIONS IN THE UPPER OUTER QUADRANT OF THE RIGHT BREAST, LOW SUSPICION. FULL PATHOLOGY RESULTS TO FOLLOW. Pathology Results: Benign BREAST, RIGHT, STEREOTACTIC CORE BIOPSY: FIBROCYSTIC CHANGE (STROMAL FIBROSIS, CYST FORMATION, APOCRINE METAPLASIA, ADENOSIS, MILD DUCT HYPERPLASIA AND SCATTERED MICROCALCIFICATION). RECOMMEND RADIOGRAPH CORRELATION AND FOLLOW UP INDICATED. Recommendation Follow up mammogram of the right breast in 6 months. MARGOT
== END ==
LOC: RADMAMWWP 06:53
PROVIDERS: ATTEND Surgery
DX: N60.31 Fibrosclerosis of right breast (principal); N60.01 Solitary cyst of right breast; N60.81 Other benign mammary dysplasias of right breast; N60.21 Fibroadenosis of right breast; N60.91 Unspecified benign mammary dysplasia of right breast
CPT/HCPCS: 88305; 19081; A4648; J2001

== ENCOUNTER → 2018-06-15 | Outpatient (CLI) | payer BC ==
--- NOTE | 2018-06-18 16:30 | MM ---
Reason for exam: additional evaluation requested from prior study. Last mammogram was performed 1 year and 1 month ago. History: Patient is postmenopausal. Family history of breast cancer in mother at age 50. Benign MG stereo VAD BX RT of the right breast, June 11, 2017. Took hormonal contraceptives beginning at age 14. Physical Findings: Nurse did not find any significant physical abnormalities on exam. MG Diagnostic Mammo w CAD J CARLOS Bilateral CC and MLO view(s) were taken. Prior study comparison: May 13, 2017, right breast MG work up mamm w CAD RT. May 13, 2017, bilateral MG screening mammo w CAD. The breast tissue is heterogeneously dense. This may lower the sensitivity of mammography. Previous right breast mammotome biopsy. Chronic nodularity in the right breast. No significant new finding when compared with prior studies. These results were verbally communicated with the patient and result sheet given to the patient on 06/15/18. ASSESSMENT: Benign, BI-RAD 2 RECOMMENDATION: Routine screening mammogram of both breasts in 1 year.
== END | disposition home or self-care (01) ==
LOC: RADMAMWWP 10:06
PROVIDERS: ATTEND Family Medicine
DX: R92.8 Other abnormal and inconclusive findings on diagnostic imaging of breast (principal); N63.0 Unspecified lump in unspecified breast
CPT/HCPCS: 77066

== ENCOUNTER 2018-09-15 15:57 | Emergency (ER) | payer BC ==
[2018-09-15 16:16] VITALS: RESP 18; TEMP 97.8
[2018-09-15] MEDS ORDERED: SODIUM CHLORIDE 0.9% 1,000 ML IV STA (16:37)
[2018-09-15] MEDS ORDERED: KETOROLAC 30 MG/ML 1 ML VIAL IVP STA (16:37)
[2018-09-15 17:24] LABS: Basophils # (A) 0.1 k/uL (0-0.2); Basophils % (A) 1 %; Eosinophils # (A) 0.1 k/uL (0-0.7); Eosinophils % (A) 1 %; HCT 44.1 % (34.0-46.0); HGB 15.2 gm/dL (11.4-16.0); Lymphocytes # (A) 0.9 k/uL (1.0-4.8); Lymphocytes % (A) 7 %; MCH 30.2 pg (25.0-35.0); MCHC 34.4 g/dL (31.0-37.0); MCV 87.7 fL (80.0-100.0); Mean Platelet Volume 7.7; Monocytes # (A) 0.5 k/uL (0-1.0); Monocytes % (A) 3 %; Neutrophils # (A) 12.7 k/uL (1.3-7.7); Neutrophils % (A) 88 %; Platelet Count 255 k/uL (150-450); RBC 5.03 m/uL (3.80-5.40); RDW 14.2 % (11.5-15.5); WBC 14.4 k/uL (3.8-10.6)
[2018-09-15 17:27] LABS: Appearance,Urine Cloudy (Clear); Bacteria,Urine Few /hpf; Bilirubin,Urine Negative (Negative); Blood,Urine Small (Negative); Color,Urine Yellow; Glucose,Urine (UA) Negative (Negative); Ketones,Urine Negative (Negative); Leukocyte Esterase,Urine Trace (Negative); Mucus,Urine Moderate /hpf; Nitrite,Urine Positive (Negative); Protein,Urine Trace (Negative); RBC,Urine 1 /hpf (0-5); Squamous Epithelial Cell,Urine 5 /hpf (0-4); Urobilinogen,Urine <2.0 mg/dL (<2.0); WBC,Urine 12 /hpf (0-5)
[2018-09-15 17:34] LABS: ALT 29 U/L (9-52); AST 17 U/L (14-36); Albumin 4.5 g/dL (3.5-5.0); Alkaline Phosphatase 115 U/L (38-126); Amylase 40 U/L (30-110); Anion Gap 9 mmol/L; Blood Urea Nitrogen 10 mg/dL (7-17); Calcium 9.6 mg/dL (8.4-10.2); Carbon Dioxide 23 mmol/L (22-30); Chloride 108 mmol/L (98-107); Glucose 103 mg/dL (74-99); Lipase 34 U/L (23-300); Potassium 4.4 mmol/L (3.5-5.1); Sodium 140 mmol/L (137-145); Total Bilirubin 0.9 mg/dL (0.2-1.3); Total Protein 7.5 g/dL (6.3-8.2)
--- NOTE | 2018-09-15 17:37 | ED ---
General Adult HPI - General Chief complaint: Abdominal Pain Stated complaint: ABDOMINAL PAIN Time Seen by Provider: 09/15/18 16:18 Source: patient, family, RN notes reviewed Mode of arrival: ambulatory Limitations: no limitations - History of Present Illness Initial comments: 52-year-old female presents to the emergency department for a chief complaint of left lower quadrant pain x 12 hours. Patient states this pain started around 4 AM. Patient states it is a stabbing pain in her left lower quadrant. Patient states she has had similar pain before when she had diverticulitis. Patient is admits to nausea with one episode of diarrhea. Denies melena, hematochezia, or mucus in the stool. Patient denies vomiting. Patient denies fevers or chills. Patient denies any dysuria. Denies any chance of .Patient has no other complaints at this time including shortness of breath, chest pain, abdominal pain, nausea or vomiting, headache, or visual changes. - Related Data Home Medications Medication Instructions Recorded Confirmed Atorvastatin [Lipitor] 40 mg PO DAILY 02/26/17 09/15/18 Protandim 1 cap PO DAILY 09/15/18 09/15/18 Previous Rx's Medication Instructions Recorded Ciprofloxacin HCl [Cipro] 500 mg PO Q12H 10 Days tab 09/15/18 metroNIDAZOLE [Flagyl] 500 mg PO TID 10 Days tab 09/15/18 Allergies Allergy/AdvReac Type Severity Reaction Status Date / Time Iodinated Contrast- Oral and Allergy Swelling Verified 09/15/18 18:49 IV Dye Review of Systems ROS Statement: Those systems with pertinent positive or pertinent negative responses have been documented in the HPI. ROS Other: All systems not noted in ROS Statement are negative. Past Medical History Past Medical History: Hyperlipidemia Additional Past Medical History / Comment(s): diverticulitis, History of Any Multi-Drug Resistant Organisms: None Reported Past Surgical History: No Surgical Hx Reported Past Anesthesia/Blood Transfusion Reactions: No Reported Reaction Past Psychological History: No Psychological Hx Reported Smoking Status: Current some day smoker Past Alcohol Use History: Occasional Past Drug Use History: None Reported - Past Family History Father Additional Family Medical History / Comment(s): Has chronic urinary catheter Mother Family Medical History: Cancer Additional Family Medical History / Comment(s): Mother after heart valve surgery; had ovarian cancer General Exam Limitations: no limitations General appearance: alert, in no apparent distress Head exam: Present: atraumatic, normocephalic, normal inspection Eye exam: Present: normal appearance, PERRL, EOMI. Absent: scleral icterus, conjunctival injection, periorbital swelling ENT exam: Present: normal exam, mucous membranes moist Neck exam: Present: normal inspection, full ROM. Absent: tenderness, meningismus, lymphadenopathy Respiratory exam: Present: normal lung sounds bilaterally. Absent: respiratory distress, wheezes, rales, rhonchi, stridor Cardiovascular Exam: Present: regular rate, normal rhythm, normal heart sounds. Absent: systolic murmur, diastolic murmur, rubs, gallop, clicks GI/Abdominal exam: Present: soft, tenderness (Left lower quadrant tenderness without guarding, no tenderness noted in the remainder of the abdomen.), normal bowel sounds. Absent: distended, guarding, rebound, rigid Neurological exam: Present: alert, oriented X3, CN II-XII intact Psychiatric exam: Present: normal affect, normal mood Course Vital Signs 09/15/18 09/15/18 09/15/18 16:11 17:30 18:00 Temperature 97.8 F Pulse Rate 83 82 83 Respiratory 18 18 18 Rate Blood Pressure 140/87 132/63 111/65 O2 Sat by Pulse 99 98 98 Oximetry 09/15/18 09/15/18 18:30 19:00 Temperature Pulse Rate 80 83 Respiratory 18 18 Rate Blood Pressure 125/78 147/83 O2 Sat by Pulse 95 96 Oximetry Medical Decision Making - Medical Decision Making 52-year-old female with a past medical history of diverticulitis presents for left lower quadrant pain 12 hours. No fevers or chills. Patient does have some tenderness of the left lower quadrant on exam. CBC does show a white count of 14.4. CMP within normal limits. Urinalysis does show positive nitrites with 12 white blood cells. Will be cultured and patient will be treated. Was given 1 g of Rocephin here. Abdomen and pelvis CT does show a complex cystic enlargement of the uterus suggestive of degenerating fibroid which appears increased converted old exam. I did alert patient of this and she will be following up with her primary care to discuss findings and further management. Patient also is a small focal area of mid sigmoid diverticulitis. Patient given Flagyl and Cipro as this will treat both the urinary tract infection and diverticulitis. I did offer to give IV Flagyl and Cipro but patient would rather have oral is she is ready to go home. She will follow up with primary care in 1-2 days. She will also follow up with GI. She will return here if she has any worsening symptoms. - Lab Data Result diagrams: 09/15/18 17:07 09/15/18 17:07 Lab Results 09/15/18 09/15/18 09/15/18 Range/Units 17:07 17:07 17:07 WBC 14.4 H (3.8-10.6) k/uL RBC 5.03 (3.80-5.40) m/uL Hgb 15.2 (11.4-16.0) gm/dL Hct 44.1 (34.0-46.0) % MCV 87.7 (80.0-100.0) fL MCH 30.2 (25.0-35.0) pg MCHC 34.4 (31.0-37.0) g/dL RDW 14.2 (11.5-15.5) % Plt Count 255 (150-450) k/uL Neutrophils % 88 % Lymphocytes % 7 % Monocytes % 3 % Eosinophils % 1 % Basophils % 1 % Neutrophils # 12.7 H (1.3-7.7) k/uL Lymphocytes # 0.9 L (1.0-4.8) k/uL Monocytes # 0.5 (0-1.0) k/uL Eosinophils # 0.1 (0-0.7) k/uL Basophils # 0.1 (0-0.2) k/uL Sodium 140 (137-145) mmol/L Potassium 4.4 (3.5-5.1) mmol/L Chloride 108 H (98-107) mmol/L Carbon Dioxide 23 (22-30) mmol/L Anion Gap 9 mmol/L BUN 10 (7-17) mg/dL Creatinine 0.60 (0.52-1.04) mg/dL Est GFR (CKD-EPI)AfAm >90 (>60 ml/min/1.73 sqM) Est GFR (CKD-EPI)NonAf >90 (>60 ml/min/1.73 sqM) Glucose 103 H (74-99) mg/dL Calcium 9.6 (8.4-10.2) mg/dL Total Bilirubin 0.9 (0.2-1.3) mg/dL AST 17 (14-36) U/L ALT 29 (9-52) U/L Alkaline Phosphatase 115 (38-126) U/L Total Protein 7.5 (6.3-8.2) g/dL Albumin 4.5 (3.5-5.0) g/dL Amylase 40 (30-110) U/L Lipase 34 (23-300) U/L Urine Color Urine Appearance (Clear) Urine pH (5.0-8.0) Ur Specific [place] (1.001-1.035) Urine Protein (Negative) Urine Glucose (UA) (Negative) Urine Ketones (Negative) Urine Blood (Negative) Urine Nitrite (Negative) Urine Bilirubin (Negative) Urine Urobilinogen (<2.0) mg/dL Ur Leukocyte Esterase (Negative) Urine RBC (0-5) /hpf Urine WBC (0-5) /hpf Ur Squamous Epith Cells (0-4) /hpf Urine Bacteria (None) /hpf Urine Mucus (None) /hpf Urine HCG, Qual Not Detected (Not Detectd) 09/15/18 Range/Units 17:07 WBC (3.8-10.6) k/uL RBC (3.80-5.40) m/uL Hgb (11.4-16.0) gm/dL Hct (34.0-46.0) % MCV (80.0-100.0) fL MCH (25.0-35.0) pg MCHC (31.0-37.0) g/dL RDW (11.5-15.5) % Plt Count (150-450) k/uL Neutrophils % % Lymphocytes % % Monocytes % % Eosinophils % % Basophils % % Neutrophils # (1.3-7.7) k/uL Lymphocytes # (1.0-4.8) k/uL Monocytes # (0-1.0) k/uL Eosinophils # (0-0.7) k/uL Basophils # (0-0.2) k/uL Sodium (137-145) mmol/L Potassium (3.5-5.1) mmol/L Chloride (98-107) mmol/L Carbon Dioxide (22-30) mmol/L Anion Gap mmol/L BUN (7-17) mg/dL Creatinine (0.52-1.04) mg/dL Est GFR (CKD-EPI)AfAm (>60 ml/min/1.73 sqM) Est GFR (CKD-EPI)NonAf (>60 ml/min/1.73 sqM) Glucose (74-99) mg/dL Calcium (8.4-10.2) mg/dL Total Bilirubin (0.2-1.3) mg/dL AST (14-36) U/L ALT (9-52) U/L Alkaline Phosphatase (38-126) U/L Total Protein (6.3-8.2) g/dL Albumin (3.5-5.0) g/dL Amylase (30-110) U/L Lipase (23-300) U/L Urine Color Yellow Urine Appearance Cloudy H (Clear) Urine pH 5.0 (5.0-8.0) Ur Specific [place] 1.020 (1.001-1.035) Urine Protein Trace H (Negative) Urine Glucose (UA) Negative (Negative) Urine Ketones Negative (Negative) Urine Blood Small H (Negative) Urine Nitrite Positive H (Negative) Urine Bilirubin Negative (Negative) Urine Urobilinogen <2.0 (<2.0) mg/dL Ur Leukocyte Esterase Trace H (Negative) Urine RBC 1 (0-5) /hpf Urine WBC 12 H (0-5) /hpf Ur Squamous Epith Cells 5 H (0-4) /hpf Urine Bacteria Few H (None) /hpf Urine Mucus Moderate H (None) /hpf Urine HCG, Qual (Not Detectd) Disposition Clinical Impression: Fibroid, Diverticulitis, Urinary tract infection Disposition: HOME SELF-CARE Condition: Good Instructions (If sedation given, give patient instructions): Diverticulitis (ED), Urinary Tract Infection in Women (ED) Additional Instructions: Please take antibiotics as directed. Please follow-up with primary care for CT findings. Follow up with GI for diverticulitis. Please return here to the emergency department if you have any worsening symptoms. Prescriptions: Ciprofloxacin HCl [Cipro] 500 mg PO Q12H 10 Days tab metroNIDAZOLE [Flagyl] 500 mg PO TID 10 Days tab Is patient prescribed a controlled substance at d/c from ED?: No Referrals: Gracia Drake DO [Primary Care Provider] - 1-2 days Oleg Pearson MD [STAFF PHYSICIAN] - 1-2 days Time of Disposition: 19:52
[2018-09-15] MEDS ORDERED: diphenhydrAMINE 50 MG/ML 1 ML VIAL IVP STA (18:34)
[2018-09-15] MEDS ORDERED: methylPREDNISolone SOD SUCCI 125 MG/2 ML VIAL IV STA (18:34)
[2018-09-15] MEDS ORDERED: FAMOTIDINE 20 MG/2 ML VIAL IV STA (18:34)
[2018-09-15] MEDS ORDERED: cefTRIAXone IN SWFI 1,000 MG/10 ML SYRINGE IVP STA (18:43)
--- NOTE | 2018-09-15 19:14 | CT ---
EXAMINATION TYPE: CT abdomen pelvis w con DATE OF EXAM: 09/15/2018 COMPARISON: 10/20/2016 HISTORY: Abdominal pain. CT DLP: 1571.3 mGycm Automated exposure control for dose reduction was used. TECHNIQUE: Helical acquisition of images was performed from the lung bases through the pelvis. CONTRAST: Performed without Oral Contrast and with IV Contrast, patient injected with 100 mL of Isovue 300. FINDINGS: There is some interstitial linear density at the lung bases. There is no pulmonary consolidation at t he lung bases. There is no pleural effusion. Heart size is normal. Stomach appears normal. Liver spleen pancreas gallbladder appear normal. Bile ducts are not dilated. There is no adrenal mass. Kidneys show satisfactory contrast opacification. There is no hydronephrosi s. There is 2 cm cortical cyst posterior left kidney. There is no retroperitoneal adenopathy. Ureters are not dilated. Bladder distends smoothly. There is cystic enlargement of the uterus. There appears to be a complex cystic fluid collection in the lower uterine segment that measures almost 5 cm in di ameter. This has mixed attenuation. There are numerous diverticula in the sigmoid colon. There is mild fat stranding around the mid sigmo id colon. There is no evidence of an abscess. Appendix appears normal. There is no bowel obstruction. There is no free air. There is no inguinal hernia. There is no ascites. I see no bony destructive pr ocess. IMPRESSION: COMPLEX CYSTIC ENLARGEMENT OF THE UTERUS SUGGESTIVE OF DEGENERATING FIBROID. THIS APPEARS INCREASED C OMPARED TO OLD EXAM. FOLLOW-UP IS WARRANTED IN VIEW OF THE INCREASING SIZE. SMALL FOCAL AREA OF MID SIGMOID DIVERTICULITIS. THERE IS CLEARING OF THE DIVERTICULITIS OF THE MORE P ROXIMAL SIGMOID COLON COMPARED TO OLD EXAM. MODERATELY SEVERE SIGMOID DIVERTICULOSIS. NORMAL APPENDIX..
[2018-09-15] MEDS ORDERED: CIPROFLOXACIN HCL 500 MG TAB PO STA (19:48)
[2018-09-15] MEDS ORDERED: metroNIDAZOLE 500 MG TAB PO STA (19:48)
[2018-09-15 20:29] VITALS: BP 148/78; PULSE 80
== END 2018-09-15 20:28 | disposition home or self-care (01) ==
LOC: EC 15:57
DX: D25.9 Leiomyoma of uterus, unspecified (principal); K57.32 Diverticulitis of large intestine without perforation or abscess without bleeding; N39.0 Urinary tract infection, site not specified; E78.5 Hyperlipidemia, unspecified; F17.200 Nicotine dependence, unspecified, uncomplicated; Z79.899 Other long term (current) drug therapy; Z91.041 Radiographic dye allergy status
CPT/HCPCS: 36415; 80053; 82150; 83690; 85025; 81001; 81025; 87086; 74177; 99284; 96374; 96375 ×4; 96361 ×2; J1200; J2930; J0696; J1885; Q9967

== ENCOUNTER → 2020-05-10 | Outpatient (CLI) | payer BC ==
--- NOTE | 2020-05-13 13:53 | MM ---
Reason for exam: screening (asymptomatic). Last mammogram was performed 1 year and 11 months ago. History: Patient is postmenopausal. Family history of breast cancer in mother at age 50. Benign MG stereo VAD BX RT of the right breast, June 11, 2017. Took hormonal contraceptives beginning at age 14. Physical Findings: A clinical breast exam by your physician is recommended on an annual basis and results should be correlated with mammographic findings. MG Screening Mammo w CAD Bilateral CC and MLO view(s) were taken. XCCL view(s) were taken of the right breast. Prior study comparison: June 15, 2018, bilateral MG diagnostic mammo w CAD J [facility]. May 13, 2017, right breast MG work up mamm w CAD RT. The breast tissue is heterogeneously dense. This may lower the sensitivity of mammography. Previous mammotome biopsy in the right breast. There is chronic nodularity in the right breast. There is no discrete abnormality. ASSESSMENT: Benign, BI-RAD 2 RECOMMENDATION: Routine screening mammogram of both breasts in 1 year.
== END | disposition home or self-care (01) ==
LOC: RADMAMWWP 07:49
PROVIDERS: ATTEND Family Medicine
DX: Z12.31 Encounter for screening mammogram for malignant neoplasm of breast (principal); Z80.3 Family history of malignant neoplasm of breast
CPT/HCPCS: 77067

== ENCOUNTER → 2023-03-03 | Outpatient (CLI) | payer BC ==
--- NOTE | 2023-03-04 09:29 | MM ---
Reason for Exam: Screening (asymptomatic). Last mammogram was performed 2 year(s) and 10 month(s) ago. Patient History: Menarche at age 10. First Full-Term at age 28. Postmenopausal. Hormonal Contraceptives, from age 14 until age 27. 06/11/2017, Benign Core Biopsy on the right side. Mother had breast cancer, age 50. Risk Values: Debbi 5 year model risk: 3.3%. NCI Lifetime model risk: 18.8%. Prior Study Comparison: 05/13/2017 Right Diagnostic Mammogram, [facility]. 06/15/2018 Bilateral Diagnostic Mammogram, [facility]. 05/10/2020 Bilateral Screening Mammogram, [facility]. Tissue Density: The breast tissue is extremely dense which could obscure a lesion on mammography. Findings: Analyzed By CAD. There is no suspicious group of microcalcifications or new suspicious mass in either breast. Overall Assessment: Benign, BI-RAD 2 Management: Screening Mammogram of both breasts in 1 year. . Patient should continue monthly self-breast exams. A clinical breast exam by your physician is recommended on an annual basis. This exam should not preclude additional follow-up of suspicious palpable abnormalities. Note on Debbi scores and lifetime risk: 1. A Debbi score greater than 3% is considered moderate risk. If this is the case, consider specialist referral to assess eligibility for a risk reducing agent. 2. If overall lifetime risk for the development of breast cancer is 20% or higher, the patient may qualify for future screening with alternating mammogram and breast MRI. Electronically signed and approved by: Apolinar Morataya M.D. [facility]
== END | disposition home or self-care (01) ==
LOC: RADMAMWWP 08:15
PROVIDERS: ATTEND Family Medicine
DX: Z12.31 Encounter for screening mammogram for malignant neoplasm of breast (principal); Z80.3 Family history of malignant neoplasm of breast; Z78.0 Asymptomatic menopausal state
CPT/HCPCS: 77067